=== PATIENT | female | born 1930 | race Caucasian/White ===

== ENCOUNTER 2017-02-03 20:34 | Inpatient (IN) | payer OTHER, BC ==
[2017-02-03] MEDS ORDERED: SODIUM CHLORIDE 0.9% 1000 ML INFUS.BAG IV STA (20:45)
[2017-02-03 21:02] VITALS: BMI 20.5
[2017-02-03 21:02] LABS: BASOPHIL 0.1 % (0-2.0); MCH 23.8 pg (25.7-33.7); MCHC 30.6 g/dl (32.0-36.0); MEAN CELL VOLUME 77.8 fl (80-96); MEAN PLT VOLUME 7.8 fl (7.5-11.1); NEUTROPHILS 86.3 % (42.8-82.8); PLATELET COUNT 247 K/MM3 (134-434); RDW 18.8 % (11.6-15.6); WHITE BLOOD COUNT 13.3 K/mm3 (4.0-10.0)
[2017-02-03] MEDS ORDERED: ACETAMINOPHEN 1000 MG/100 ML VIAL (NON FORMULARY) IVPB ONE (21:09)
--- NOTE | 2017-02-03 21:09 | PDOC ---
History of Present Illness - History of Present Illness Initial Comments: 02/03/17 21:14 The patient is a 86 year old female, with a significant past medical history of CVA, UTI, seizure disorder, and pneumonias, who presents to the emergency department from [facility] with family for altered mental status this evening. As per the nursing facility, the patient is confused at baseline, however, became unresponsive shortly after eating dinner. Allergies: penicillins and keflex PCP - Dr. Knowles <Alexia Ahn - Last Filed: 02/03/17 21:38> - General History Source: Family <Juan Shaikh - Last Filed: 02/04/17 19:18> - General Chief Complaint: Altered Mental Status Stated Complaint: SEPSIS Time Seen by Provider: 02/03/17 20:43 Past History <Alexia Ahn - Last Filed: 02/03/17 21:38> - Past Medical History Anemia: Yes Cancer: Yes (lung ca w/surgery and chemo) CVA: Yes (stroke;unable to walk since 2009) Dementia: Yes Disorders: Yes (UTI) HTN: Yes Hypercholesterolemia: Yes Seizures: Yes Thyroid Disease: Yes (HYPO) - Surgical History Lung Surgery: Yes (left lower lobe removal sec to cancer.) - Immunization History Immunization Up to Date: Yes - Psycho/Social/Smoking Cessation Hx Anxiety: No Suicidal Ideation: No Smoking Status: Yes Smoking History: Unknown if ever smoked Have you smoked in the past 12 months: No Number of Cigarettes Smoked Daily: 0 Hx Alcohol Use: No Drug/Substance Use Hx: No Substance Use Type: None Hx Substance Use Treatment: No <Juan Shaikh - Last Filed: 02/04/17 19:18> - Past Medical History Allergies/Adverse Reactions: Allergies Allergy/AdvReac Type Severity Reaction Status Date / Time cephalexin monohydrate Allergy Mild Rash Verified 02/03/17 20:40 [From Keflex] Penicillins Allergy Mild Rash Verified 02/03/17 20:40 Home Medications: Ambulatory Orders Citalopram Hydrobromide [Citalopram HBr] 10 mg PO HS 12/31/14 Levetiracetam 5 ml PO BID 12/31/14 Multivitamins [Multivit ([facility] Formulary)] 1 tab PO DAILY 12/31/14 Petrolatum,White [Hydrophor] 100 gm TP DAILY 12/31/14 Polyethylene Glycol [Polyox Wsr-301] 1 gm MC BID 12/31/14 Ranitidine HCl [Zantac] 150 mg PO HS 12/31/14 Fluticasone Propionate [Flovent Diskus] 50 mcg IH DAILY 02/03/17 Review of Systems - Review of Systems Able to Perform ROS?: No (AMS.) <Alexia Ahn - Last Filed: 02/03/17 21:38> *Physical Exam - Vital Signs Last Vital Signs Temp Pulse Resp BP Pulse Ox 111 H 20 138/68 94 L 02/03/17 20:40 02/03/17 20:40 02/03/17 20:40 02/03/17 20:40 - Physical Exam Comments: 02/03/17 21:14 GENERAL: (+) Patient is unresponsive but maintaining airway. No acute distress. HEENT: Normocephalic, atraumatic. PERRLA, EOMI. No conjunctival pallor. Sclera are non- icteric. Moist mucous membranes. Oropharynx is clear. NECK: Supple. Full ROM. No JVD. Carotid pulses 2+ and symmetric, without bruits. No thyromegaly. No lymphadenopathy. CARDIOVASCULAR: (+) Tachycardia with normal rhythm, 3/6 holosystolic murmur. No rubs, or gallops. Distal pulses are 2+ and symmetric. PULMONARY: No evidence of respiratory distress. Lungs clear to auscultation bilaterally. No wheezing, rales or rhonchi. ABDOMINAL: Soft. Non-tender. Non-distended. No rebound or guarding. No organomegaly. Normoactive bowel sounds. MUSCULOSKELETAL Normal range of motion at all joints. No bony deformities or tenderness. No CVA tenderness. EXTREMITIES: No cyanosis. No clubbing. No edema. No calf tenderness. SKIN: Warm and dry. Normal capillary refill. No rashes. No jaundice. NEUROLOGICAL: No focal deficits. Cranial nerves 2-12 intact. Normoreflexic in the upper and lower extremities. Normal speech. Toes are down-going bilaterally. <Alexia Ahn - Last Filed: 02/03/17 21:38> - Vital Signs Last Vital Signs Temp Pulse Resp BP Pulse Ox 111 H 20 138/68 94 L 02/03/17 20:40 02/03/17 20:40 02/03/17 20:40 02/03/17 20:40 <Juan Shaikh - Last Filed: 02/04/17 19:18> Heart Score/ECG Review - ECG Intrepretation Comment:: 02/03/17 21:17 ECG was read by Dr. Shaikh at 20:54 Impression: Sinus tachycardia. possible left atrial enlargement. Left axis deviation. Inferior infarct, age undetermined. Possible anterior infarct, age undetermined. Vent. Rate: 107 bpm ID interval: 130 ms QTc: 324 ms <Alexia Ahn - Last Filed: 02/03/17 21:38> ED Treatment Course - LABORATORY CBC & Chemistry Diagram: 02/03/17 20:35 02/03/17 20:35 - ADDITIONAL ORDERS Additional order review: Laboratory Results 02/03/17 20:46 VBG pH 7.44 H POC VBG pCO2 40.5 POC VBG pO2 53.1 H Mixed VBG HCO3 27.0 H 02/03/17 20:35 RBC 3.76 MCV 77.8 L MCHC 30.6 L RDW 18.8 H D MPV 7.8 Neutrophils % 86.3 H Lymphocytes % 4.5 L D Monocytes % 9.1 Eosinophils % 0.0 Basophils % 0.1 - Medications Given in the ED: ED Medications Discontinued Medications Generic Name Dose Route Start Last Admin Trade Name Freq PRN Reason Stop Dose Admin Sodium Chloride 1,000 ml 02/03/17 20:45 02/03/17 21:06 Normal Saline - IV 02/03/17 20:46 1,000 ml ONCE STA Administration <Alexia Ahn - Last Filed: 02/03/17 21:38> - LABORATORY CBC & Chemistry Diagram: 02/04/17 07:45 02/04/17 07:45 - RADIOLOGY Radiology Studies Ordered: Category Date Time Status CHEST X-RAY PORTABLE* [RAD] Stat Radiology 02/03/17 20:46 Ordered - Medications Given in the ED: ED Medications Discontinued Medications Generic Name Dose Route Start Last Admin Trade Name Freq PRN Reason Stop Dose Admin Sodium Chloride 1,000 ml 02/03/17 20:45 02/03/17 21:06 Normal Saline - IV 02/03/17 20:46 1,000 ml ONCE STA Administration <Juan Shaikh - Last Filed: 02/04/17 19:18> Medical Decision Making - Medical Decision Making 02/03/17 21:57 Dr. Shaikh: The scribe's documentation has been prepared under my direction and personally reviewed by me in its entirery. I confirm that the note above accurately reflects all work, treatment, procedures, and medical decision making performed by me. Pt to be admitted for probable sepsis. Pt with frequent UTI's. Pt admitted to be by her pcp Dr. Knowles <Juan Shaikh - Last Filed: 02/04/17 19:18> *DC/Admit/Observation/Transfer - Attestations Scribe Attestion: 02/03/17 21:16 Documentation prepared by Alexia Ahn, acting as medical housekeeper for Juan Shaikh DO <Alexia Ahn - Last Filed: 02/03/17 21:38> - Discharge Dispostion Admit: Yes <Juan Shaikh - Last Filed: 02/04/17 19:18> Diagnosis at time of Disposition: Sepsis Qualifiers: Sepsis type: sepsis due to unspecified organism Qualified Code(s): A41.9 - Sepsis, unspecified organism - Referrals
[2017-02-03 21:12] LABS: VENOUS PH 7.44 (7.32-7.42)
[2017-02-03] MEDS ORDERED: ACETAMINOPHEN INJECTION 100 ML IVPB ONE ×2 (21:26→21:27)
[2017-02-03 21:31] LABS: ALBUMIN 2.4 g/dl (3.4-5.0); BILIRUBIN,TOTAL 0.7 mg/dL (0.2-1.0); CALCIUM 8.2 mg/dL (8.5-10.1); COCKROFT - GAULT 7.7095; CREATININE 4.5 mg/dL (0.55-1.02); TOT PROT 7.1 g/dl (6.4-8.2)
[2017-02-03 21:34] LABS: TROPONIN I 0.03 ng/ml (0.00-0.05)
[2017-02-03 21:51] LABS: INR 1.07 (0.82-1.09); PROTHROMBIN TIME (PATIENT) 11.8 SEC (9.98-11.88)
[2017-02-03] MEDS ORDERED: LEVOFLOXACIN 500 MG IVPB 100 ML IVPB ONE ×2 (21:52→22:20)
[2017-02-03] MEDS ORDERED: AZTREONAM 1 GM in DEXTROSE 5%-WATER - 50 ML IVPB ONE (21:52)
[2017-02-03 21:54] LABS: ACTIVATED PTT 25.2 SECONDS (26.9-34.4)
[2017-02-03] MEDS ORDERED: VANCOMYCIN 1 GRAM (PRE-DOCKED) 250 ML IVPB ONE ×2 (22:04→23:47)
[2017-02-03] MEDS: DEXTROSE 5%-0.45% SALINE 1,000 ML IV SCH (22:30)
[2017-02-04 03:51] LABS: URINE APPEARANCE TURBID; URINE BILIRUBIN NEGATIVE (NEGATIVE); URINE BLOOD 1+ (NEGATIVE); URINE COLOR YELLOW; URINE GLUCOSE (UA) NEGATIVE (NEGATIVE); URINE KETONE NEGATIVE (NEGATIVE); URINE LEUK ESTERASE 2+ (NEGATIVE); URINE NITRITE NEGATIVE (NEGATIVE); URINE PROTEIN 3+ (NEGATIVE); URINE UROBILINOGEN NEGATIVE E.U./dl (0.2-1.0)
[2017-02-04] MEDS: DEXTROSE 5%-0.45% SALINE 1,000 ML IV SCH ×2 (03:58→14:42)
[2017-02-04 04:13] LABS: URINE BACTERIA MANY /hpf (NONE SEEN); URINE RBC 133 /hpf (0-3); URINE WBC 216 /hpf (3-5)
[2017-02-04 08:20] LABS: BASOPHIL 0.2 % (0-2.0); EOSINOPHIL 0.5 % (0-4.5); MCHC 30.5 g/dl (32.0-36.0); MEAN CELL VOLUME 78.7 fl (80-96); MEAN PLT VOLUME 7.7 fl (7.5-11.1); NEUTROPHILS 86.9 % (42.8-82.8); PLATELET COUNT 214 K/MM3 (134-434); RDW 18.7 % (11.6-15.6); WHITE BLOOD COUNT 12.9 K/mm3 (4.0-10.0)
--- NOTE | 2017-02-04 08:21 | HP ---
Admitting History and Physical - Admission Chief Complaint: 86 y.o F was found to be unresponsive at [facility]. She was also febrile and in respiratory distress. The family was consulted about further management and they requested to send the patient to [facility]. History of Present Illness: ASHD Multiple Abx allergies Large occipital CVA. Sz disorder. Chronic anemia. Dementia. Depression. CABG.HTN. Hypothyroidism. Thyroidectomy. Chronic and recurrent UTI. 12/18/16-E.Coli S Cipro. Constipation. DM type 2 Pneumonias. 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 Cardiovascular: Yes: CAD, HTN Gastrointestinal: Yes: Diverticulosis Renal/: Yes: UTI Musculoskeletal: Yes: Osteoarthritis Endocrine: Yes: Hypothyroidism, Osteopenia - Past Surgical History Past Surgical History: Yes: CABG - Smoking History Smoking history: Unknown if ever smoked Have you smoked in the past 12 months: No Aproximately how many cigarettes per day: 0 - Alcohol/Substance Use Hx Alcohol Use: No - Social History History of Recent Travel: No Home Medications - Allergies Allergies/Adverse Reactions: Allergies Allergy/AdvReac Type Severity Reaction Status Date / Time cephalexin monohydrate Allergy Mild Rash Verified 02/03/17 20:40 [From Keflex] Penicillins Allergy Mild Rash Verified 02/03/17 20:40 - Home Medications Home Medications: Ambulatory Orders Citalopram Hydrobromide [Citalopram HBr] 10 mg PO HS 12/31/14 Levetiracetam 5 ml PO BID 12/31/14 Multivitamins [Multivit ([facility] Formulary)] 1 tab PO DAILY 12/31/14 Petrolatum,White [Hydrophor] 100 gm TP DAILY 12/31/14 Polyethylene Glycol [Polyox Wsr-301] 1 gm MC BID 12/31/14 Ranitidine HCl [Zantac] 150 mg PO HS 12/31/14 Fluticasone Propionate [Flovent Diskus] 50 mcg IH DAILY 02/03/17 Family Disease History - Family Disease History Family History: Unable to Obtain Review of Systems Unable to obtain ROS, reason: Dementia, decreased MS. Physical Examination Vital Signs: Vital Signs Temperature 99.8 F H 02/03/17 22:45 Pulse Rate 110 H 02/04/17 00:00 Respiratory Rate 02/04/17 04:08 Blood Pressure 133/77 02/04/17 00:00 O2 Sat by Pulse Oximetry (%) 98 02/04/17 04:08 Findings/Remarks: elderly F responding to sternal rub. Constitutional: Yes: No Distress, Pallor, Thin Eyes: Yes: Conjunctiva Clear HENT: Yes: Atraumatic, Normocephalic Neck: Yes: Supple, Trachea Midline, Other (scar) Cardiovascular: Yes: Regular Rate and Rhythm, Tachycardia. No: JVD, Rub Respiratory: Yes: Diminished (RUL), On Nasal O2. No: Tachypnea Gastrointestinal: Yes: Normal Bowel Sounds, Soft. No: Abdomen, Obese, Ascites, Pulsatile Mass, Tenderness ...Rectal Exam: Yes: Deferred Renal/: Yes: Reese Present (drains cloudy urine). No: Anuria, Bladder Distention, CVA Tenderness - Left, CVA Tenderness - Right Breast(s): Yes: WNL Musculoskeletal: No: Joint Swelling Extremities: Yes: Deformity (B/l anle contraction). No: Calf Tenderness, Cold, Cyanosis, Erythema, Shortened Edema: No Neurological: Yes: Babinski positive. No: Alert, Seizure, Unresponsive Psychiatric: No: WNL, Oriented, Agitated Imaging - Results Chest X-ray: Report Reviewed (Developing RUL infiltrate) Cat Scan: Report Reviewed (CT head-no change) Ultrasound: Pending EKG: Image Reviewed Problem List - Problems (1) Pneumonia Assessment/Plan: Developing RUL infiltrate. Multiple ABX allergies including PCN, Cephalosporins levaquin Given to pt IV ID consult Code(s): J18.9 - PNEUMONIA, UNSPECIFIED ORGANISM Qualifiers: Pneumonia type: due to unspecified organism Laterality: right Lung location: upper lobe of lung Qualified Code(s): J18.1 - Lobar pneumonia, unspecified organism (2) Seizure disorder Assessment/Plan: Potencially unresponsive 2 unwitnessed sz and postictal. Febrile.-probably MS due to infection and toxic-metabolic encephalopathy. continue Keppra IV Check levels Code(s): G40.909 - EPILEPSY, UNSP, NOT INTRACTABLE, WITHOUT STATUS EPILEPTICUS (3) UTI (lower urinary tract infection) Assessment/Plan: Bld cx, ua C&S-P Continue levaquin adjusted to ARF Code(s): N39.0 - URINARY TRACT INFECTION, SITE NOT SPECIFIED (4) ARF (acute renal failure) Assessment/Plan: BUN 91/cr 4.5-probably ATN, possibly pre-renal component, r/o obstruction, cortical necrosis. US-P Renal consult. Code(s): N17.9 - ACUTE KIDNEY FAILURE, UNSPECIFIED Qualifiers: Acute renal failure type: unspecified Qualified Code(s): N17.9 - Acute kidney failure, unspecified
[2017-02-04 08:51] LABS: CALCIUM 7.6 mg/dL (8.5-10.1); MAGNESIUM 3.5 mg/dL (1.8-2.4)
[2017-02-04 08:54] LABS: BILIRUBIN,TOTAL 0.8 mg/dL (0.2-1.0); COCKROFT - GAULT 8.4575; CREATININE 4.1 mg/dL (0.55-1.02); TOT PROT 6.1 g/dl (6.4-8.2)
[2017-02-04] MEDS: levETIRAcetam 500 MG/5 ML INJECTION VIAL IVPB SCH ×2 (09:11→21:44)
[2017-02-04] MEDS: POLYETHYLENE GLYCOL 3350 119 GM BTL PO SCH ×2 (11:13→21:44)
--- NOTE | 2017-02-04 14:11 | PN ---
Progress Note (short form) - Note Progress Note: ID Consult dictated Gram Negative bacteremia/ sepsis UTI/ Sepsis secondary to UTI Possible pneumonia PCN / cephalosprin allergies Acute renal failure OBS Pending identification of blood isolate, empiric coverage in this PCN allergic pt with levaquin/ aztreonam, adjusted for renal failure
[2017-02-04] MEDS: HEPARIN NA (PORCINE) 5,000 UNITS/ML 1ML VIAL SQ SCH ×2 (14:42→21:44)
[2017-02-04] MEDS ORDERED: PT OWN MED DRAWER 7, Y5N ONE (15:40)
--- NOTE | 2017-02-04 15:45 | CONSULT ---
Consult Consult Specialty:: Nephrology Reason for Consultation:: GAYATHRI - History of Present Illness Chief Complaint: altered mental status History of Present Illness: Pt is an 86 year old female with pmhx of CVA, epilepsy, UTI, and PNA who was sent in for altered mental status. Pt is unable to give history and is lethargic. Her daughter is at bedside and helped with history. Pt has had recurrent UTI and PNA in the past. I was called to evaluate her for GAYATHRI. Daughter is unaware of history of kidney disease in pt. Pt was found to have a UTI and admitted to the hospital for treatment. 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 Cardio/Vascular: Yes: CAD, HTN Gastrointestinal: Yes: Diverticulosis Renal/: Yes: UTI Musculoskeletal: Yes: Osteoarthritis Endocrine: Yes: Hypothyroidism, Osteopenia - Past Surgical History Past Surgical History: Yes: CABG - Alcohol/Substance Use Hx Alcohol Use: No - Smoking History Smoking history: Unknown if ever smoked Have you smoked in the past 12 months: No Aproximately how many cigarettes per day: 0 - Social History History of Recent Travel: No Home Medications - Allergies Allergies/Adverse Reactions: Allergies Allergy/AdvReac Type Severity Reaction Status Date / Time cephalexin monohydrate Allergy Mild Rash Verified 02/03/17 20:40 [From Keflex] Penicillins Allergy Mild Rash Verified 02/03/17 20:40 - Home Medications Home Medications: Ambulatory Orders Citalopram Hydrobromide [Citalopram HBr] 10 mg PO HS 12/31/14 Levetiracetam 5 ml PO BID 12/31/14 Multivitamins [Multivit ([facility] Formulary)] 1 tab PO DAILY 12/31/14 Petrolatum,White [Hydrophor] 100 gm TP DAILY 12/31/14 Polyethylene Glycol [Polyox Wsr-301] 1 gm MC BID 12/31/14 Ranitidine HCl [Zantac] 150 mg PO HS 12/31/14 Fluticasone Propionate [Flovent Diskus] 50 mcg IH DAILY 02/03/17 Family Disease History - Family Disease History Family History: Denies Review of Systems Unable to obtain ROS, reason: pt is lethargic Physical Exam Vital Signs: Vital Signs Temperature 99.8 F H 02/04/17 14:05 Pulse Rate 106 H 02/04/17 14:05 Respiratory Rate 22 02/04/17 14:05 Blood Pressure 101/46 02/04/17 14:05 O2 Sat by Pulse Oximetry (%) 98 02/04/17 04:08 Constitutional: Yes: Calm Eyes: Yes: Conjunctiva Clear HENT: Yes: Atraumatic Cardiovascular: Yes: S1, S2 Respiratory: Yes: CTA Bilaterally Gastrointestinal: Yes: Soft Renal/: Yes: Reese Present Musculoskeletal: Yes: Muscle Weakness Edema: No Neurological: Yes: Lethargy Labs: CBC, BMP 02/04/17 07:45 02/04/17 07:45 Laboratory Tests 01/07/15 01/08/15 01/12/15 06:30 06:15 07:00 WBC Hgb Plt Count INR PTT (Actin FS) Sodium Potassium Chloride Carbon Dioxide Anion Gap BUN Creatinine 0.9 0.8 0.7 Magnesium Urine Color Urine Appearance Urine pH Ur Specific [place] Urine Protein Urine Glucose (UA) Urine Ketones Urine Blood Urine Nitrite Urine Bilirubin Urine Urobilinogen Ur Leukocyte Esterase Urine RBC Urine WBC Urine Bacteria 01/13/15 01/14/15 02/03/17 07:40 07:15 20:35 WBC 13.3 H D Hgb 8.9 L Plt Count 247 D INR PTT (Actin FS) Sodium Potassium Chloride Carbon Dioxide Anion Gap BUN Creatinine 0.7 0.7 Magnesium Urine Color Urine Appearance Urine pH Ur Specific [place] Urine Protein Urine Glucose (UA) Urine Ketones Urine Blood Urine Nitrite Urine Bilirubin Urine Urobilinogen Ur Leukocyte Esterase Urine RBC Urine WBC Urine Bacteria 02/03/17 02/03/17 02/04/17 20:35 20:35 03:12 WBC Hgb Plt Count INR 1.07 PTT (Actin FS) 25.2 L Sodium Potassium Chloride Carbon Dioxide Anion Gap BUN Creatinine 4.5 H D Magnesium Urine Color Yellow Urine Appearance Turbid Urine pH 8.0 Ur Specific [place] 1.015 Urine Protein 3+ H Urine Glucose (UA) Negative Urine Ketones Negative Urine Blood 1+ H Urine Nitrite Negative Urine Bilirubin Negative Urine Urobilinogen Negative Ur Leukocyte Esterase 2+ H Urine RBC 133 Urine WBC 216 Urine Bacteria Many 02/04/17 02/04/17 07:45 07:45 WBC 12.9 H Hgb 8.2 L Plt Count 214 INR PTT (Actin FS) Sodium 144 Potassium 4.0 Chloride 108 H Carbon Dioxide 26 Anion Gap 10 BUN 87 H Creatinine 4.1 H Magnesium 3.5 H D Urine Color Urine Appearance Urine pH Ur Specific [place] Urine Protein Urine Glucose (UA) Urine Ketones Urine Blood Urine Nitrite Urine Bilirubin Urine Urobilinogen Ur Leukocyte Esterase Urine RBC Urine WBC Urine Bacteria Imaging - Results Chest X-ray: Report Reviewed Ultrasound: Report Reviewed (nephrolithiasis) Problem List - Problems (1) ARF (acute renal failure) Code(s): N17.9 - ACUTE KIDNEY FAILURE, UNSPECIFIED Qualifiers: Acute renal failure type: unspecified Qualified Code(s): N17.9 - Acute kidney failure, unspecified (2) Sepsis Code(s): A41.9 - SEPSIS, UNSPECIFIED ORGANISM Qualifiers: Sepsis type: sepsis due to unspecified organism Qualified Code(s): A41.9 - Sepsis, unspecified organism (3) Anemia Code(s): D64.9 - ANEMIA, UNSPECIFIED Qualifiers: Anemia type: unspecified anemia type Qualified Code(s): D64.9 - Anemia , unspecified (4) Pneumonia Code(s): J18.9 - PNEUMONIA, UNSPECIFIED ORGANISM Qualifiers: Pneumonia type: due to unspecified organism Laterality: right Lung location: upper lobe of lung Qualified Code(s): J18.1 - Lobar pneumonia, unspecified organism (5) Seizure disorder Code(s): G40.909 - EPILEPSY, UNSP, NOT INTRACTABLE, WITHOUT STATUS EPILEPTICUS (6) UTI (lower urinary tract infection) Code(s): N39.0 - URINARY TRACT INFECTION, SITE NOT SPECIFIED Assessment/Plan Current Medications Generic Name Dose Route Start Last Admin Trade Name Freq PRN Reason Stop Dose Admin Heparin Sodium (Porcine) 5,000 unit 02/04/17 10:00 02/04/17 14:42 Heparin - SQ 5,000 unit BID ALFONSO Administration Dextrose/Sodium Chloride 1,000 mls @ 100 mls/hr 02/03/17 22:15 02/04/17 14:42 D5-1/2ns - IV 100 mls/hr ASDIR ALFONSO Administration Levofloxacin 50 mls @ 50 mls/hr 02/05/17 10:00 Levaquin 250 Mg Premixed Ivpb - IVPB Q2D@1000 ALFONSO Aztreonam 1 gm/ Dextrose 50 mls @ 100 mls/hr 02/04/17 22:00 IVPB BID [facility] Protocol Levetiracetam 500 mg 02/04/17 10:00 02/04/17 09:11 Keppra Injection - IVPB 500 mg BID ALFONSO Administration Polyethylene Glycol 17 gm 02/04/17 10:00 02/04/17 11:13 Miralax (For Daily Use) - PO Not Given BID ALFONSO Impression 1. GAYATHRI 2. sepsis 3. UTI 4. nephrolithiasis 5. epilepsy 6. dementia 7. proteinuria Plan - agree with IV hydration - will order urine supervisor fine grading and sodium to calc FENa - renal function is improving - abx per ID - follow up urine cultures - repeat bmp in am - likely GAYATHRI secondary to prerenal disease and sepsis, will comment more on etiology after gathering more data Dr Chamorro
[2017-02-04 17:52] LABS: URINE CREATININE 38.9 mg/dL (20-320)
--- NOTE | 2017-02-04 19:03 | CONS ---
DATE OF CONSULTATION: DATE OF DICTATION: 02/04/2017 INFECTIOUS DISEASE CONSULTATION HISTORY OF PRESENT ILLNESS: The patient is an 86-year-old demented female who is evaluated for positive blood culture, history was obtained from the chart, as she cannot give a history secondary to her demented state. The patient is normally nonverbal and nonambulatory in the intermediate. She was found to be poorly responsive and after dinner, and was transferred to the emergency room. In the emergency room she was noted to have fever to 101.2 and labored breathing. Cultures were obtained. She was empirically treated with Levaquin and Azactam. Blood cultures positive for gram-negative rods. The patient is a intermediate resident. She has had no recent hospital admissions. Her last hospital admission was 2 years ago. According to the daughter, she does get frequent urinary tract infections. The intermediate records indicate E. coli, UTI in December of this year treated with Levaquin. She also had a history of pseudomonas UTI in the past, however no other history of resistant urinary tract pathogens. PAST MEDICAL HISTORY: Positive for dementia, stroke, coronary artery disease, recurrent urinary tract infection, hypertension, hypothyroidism, seizure disorder, lung cancer status post surgery and chemotherapy. PAST SURGICAL HISTORY: Status post coronary artery bypass graft and left lower lobe lobectomy. ALLERGIES: PENICILLIN and KEFLEX. According to the notes, patient develops rash. No history of anaphylaxis. Family member unaware of the history of anaphylaxis. MEDICATION: Include citalopram, multivitamins, Zantac, Levaquin. SOCIAL HISTORY: senior living resident. She had a history of heavy tobacco use all of her life, stopped shortly after her stroke. SYSTEMS REVIEW: Neurologic: Positive for stroke and dementia. Cardiac: Negative chest pain or palpitations. Respiratory: As per HPI. Gastrointestinal: Negative vomiting or diarrhea. Genitourinary: Negative for urinary tract infection. LABORATORY DATA: White count on admission 13.3, 86 neutrophils, 4 lymphocytes, 8 monocytes, hematocrit 26.5, platelets 214, BUN 87, creatinine 4.1. CAT scan of the head negative. Urinalysis 216 white cells. Blood cultures growing gram-negative rods. Chest x-ray shows increased markings right upper lung field. Sonogram of the kidney shows calcified renal stones without obstruction. PHYSICAL EXAMINATION: General: She is not verbally responsive. She has her eyes closed. She resists exam with her right upper extremity. Vital signs: Temperature 98.8, blood pressure 137/67, pulse 106 regular, respirations 18 per minute, T-max 101.2. HEENT: Sclerae anicteric. Cardiovascular: Heart sounds S1, S2. Respiratory: Lungs poor inspiratory effort, decreased breath sounds bilaterally. Abdomen: Soft. No tenderness elicited. No mass, rebound, or rigidity. Extremities: Negative for edema. Skin: Appears intact. IMPRESSION: 1. Gram-negative bacteremia/sepsis. 2. Urinary tract infection, possible sepsis secondary to urinary tract infection. 3. Possible right upper lobe pneumonia. 4. PENICILLIN/CEPHALOSPORIN allergies. 5. Acute renal failure. 6. Dementia. Await identification of blood isolate. Empiric coverage in this PENICILLIN and CEPHALOSPORIN allergic patient with Azactam and Levaquin adjusted for renal insufficiency. IV fluid hydration. Will follow. Thank you for the kind referral. ADRI BURNS M.D. [id number]
[2017-02-04] MEDS: AZTREONAM 1 GM in DEXTROSE 5%-WATER - 50 ML IVPB SCH (21:43)
--- NOTE | 2017-02-04 22:56 | EKG ---
Test Reason : Blood Pressure : / mmHG Vent. Rate : 107 BPM Atrial Rate : 107 BPM P-R Int : 130 ms QRS Dur : 062 ms QT Int : 324 ms P-R-T Axes : 031 -31 -01 degrees QTc Int : 432 ms SINUS TACHYCARDIA POSSIBLE LEFT ATRIAL ENLARGEMENT LEFT AXIS DEVIATION INFERIOR INFARCT , AGE UNDETERMINED POSSIBLE ANTERIOR INFARCT , AGE UNDETERMINED ABNORMAL ECG WHEN COMPARED WITH ECG OF 31-DEC-2014 13:19, NO SIGNIFICANT CHANGE WAS FOUND Confirmed by ERIC EPPS, ALISIA ([id number]) on 02/04/2017 10:55:53 PM Referred By: Confirmed By:ALISIA REYES MD
[2017-02-05 07:27] LABS: BASOPHIL 0.1 % (0-2.0); EOSINOPHIL 0.1 % (0-4.5); MCH 24.3 pg (25.7-33.7); MCHC 31.2 g/dl (32.0-36.0); MEAN CELL VOLUME 77.9 fl (80-96); MEAN PLT VOLUME 7.9 fl (7.5-11.1); NEUTROPHILS 94.3 % (42.8-82.8); PLATELET COUNT 208 K/MM3 (134-434); RDW 18.9 % (11.6-15.6); WHITE BLOOD COUNT 19.5 K/mm3 (4.0-10.0)
[2017-02-05 07:53] LABS: ALBUMIN 1.8 g/dl (3.4-5.0); CALCIUM 7.2 mg/dL (8.5-10.1); COCKROFT - GAULT 7.5395; CREATININE 4.6 mg/dL (0.55-1.02); TOT PROT 5.6 g/dl (6.4-8.2)
[2017-02-05] MEDS ORDERED: SODIUM PHOSPHATE/NA BIPHOS 133 ML ENEMA PR ONE (07:57)
[2017-02-05 08:01] LABS: THYROID STIMULATING HORMONE 0.69 uIU/ml (0.358-3.74)
--- NOTE | 2017-02-05 08:04 | PN ---
Progress Note, Physician Chief Complaint: More awake, vocalizes screams when rubbed. Bld CX GNP-P ID WBC 19 K noted History of Present Illness: History of Present Illness: ASHD Multiple Abx allergies Large occipital CVA. Sz disorder. Chronic anemia. Dementia. Depression. CABG.HTN. Hypothyroidism. Thyroidectomy. Chronic and recurrent UTI. 12/18/16-E.Coli S Cipro. Kidney stones Constipation. DM type 2 Pneumonias. - Current Medication List Current Medications: Active Medications Bisacodyl (Dulcolax Suppository -) 10 mg NE DAILY [facility] Heparin Sodium (Porcine) (Heparin -) 5,000 unit SQ BID [facility] Last Admin: 02/04/17 21:44 Dose: 5,000 unit Dextrose/Sodium Chloride (D5-1/2ns -) 1,000 mls @ 100 mls/hr IV ASDIR [facility] Last Admin: 02/04/17 14:42 Dose: 100 mls/hr Levofloxacin (Levaquin 250 Mg Premixed Ivpb -) 50 mls @ 50 mls/hr IVPB Q2D@ 1000 [facility] Aztreonam 1 gm/ Dextrose 50 mls @ 100 mls/hr IVPB BID [facility] PRN Reason: Protocol Last Admin: 02/04/17 21:43 Dose: 100 mls/hr Levetiracetam (Keppra Injection -) 500 mg IVPB BID [facility] Last Admin: 02/04/17 21:44 Dose: 500 mg Polyethylene Glycol (Miralax (For Daily Use) -) 17 gm PO BID [facility] Last Admin: 02/04/17 21:44 Dose: 17 gm Sodium Phosphate (Fleet Adult Rectal Enema -) 133 ml NE ONCE ONE Stop: 02/05/17 07:58 - Objective Vital Signs: Vital Signs Temperature 98.7 F 02/05/17 06:00 Pulse Rate 100 H 02/05/17 06:00 Respiratory Rate 20 02/05/17 06:00 Blood Pressure 149/79 02/05/17 06:00 O2 Sat by Pulse Oximetry (%) 94 L 02/04/17 21:00 Constitutional: Yes: Mild Distress, Pallor, Thin Eyes: Yes: Conjunctiva Clear, EOM Intact HENT: Yes: Atraumatic, Normocephalic Neck: Yes: Supple, Trachea Midline Cardiovascular: Yes: Regular Rate and Rhythm, Tachycardia, S1, S2. No: Rub Respiratory: Yes: Regular, CTA Bilaterally, On Nasal O2. No: Bradypnea Gastrointestinal: Yes: Soft. No: Abdomen, Obese, Ascites, Palpable Mass, Tenderness ...Rectal Exam: Yes: Deferred Genitourinary: No: Anuria Breast(s): Yes: WNL Extremities: No: Amputation, Calf Tenderness Peripheral Pulses WNL: No Neurological: No: Alert, Oriented, Aphasia Psychiatric: No: Alert, Oriented, Agitated, Suicidal Ideation Labs: CBC, BMP 02/05/17 06:15 INR, PTT INR 1.07 (0.82-1.09) 02/03/17 20:35 - ....Imaging Ultrasound: Report Reviewed Problem List - Problems (1) Pneumonia Assessment/Plan: Developing RUL infiltrate. Multiple ABX allergies including PCN, Cephalosporins levaquin Given to pt IV ID consult Code(s): J18.9 - PNEUMONIA, UNSPECIFIED ORGANISM Qualifiers: Pneumonia type: due to unspecified organism Laterality: right Lung location: upper lobe of lung Qualified Code(s): J18.1 - Lobar pneumonia, unspecified organism (2) Seizure disorder Assessment/Plan: Potencially unresponsive 2 unwitnessed sz and postictal. Febrile.-probably MS due to infection and toxic-metabolic encephalopathy. continue Keppra IV Check levels Code(s): G40.909 - EPILEPSY, UNSP, NOT INTRACTABLE, WITHOUT STATUS EPILEPTICUS (3) UTI (lower urinary tract infection) Assessment/Plan: Bacteremia due to UTI. Bld cx-GNB, ua C&S-P Continue levaquin adjusted to ARF Code(s): N39.0 - URINARY TRACT INFECTION, SITE NOT SPECIFIED (4) ARF (acute renal failure) Assessment/Plan: BUN 91/cr 4.5-probably ATN, possibly pre-renal component, r/o obstruction, cortical necrosis. US-P Renal consult. Code(s): N17.9 - ACUTE KIDNEY FAILURE, UNSPECIFIED Qualifiers: Acute renal failure type: unspecified Qualified Code(s): N17.9 - Acute kidney failure, unspecified
[2017-02-05] MEDS: DEXTROSE 5%-0.45% SALINE 1,000 ML IV SCH ×2 (09:02→16:55)
[2017-02-05] MEDS ORDERED: PT OWN MED DRAWER 7, Y5N ONE ×2 (09:35→23:12)
[2017-02-05] MEDS: AZTREONAM 1 GM in DEXTROSE 5%-WATER - 50 ML IVPB SCH ×2 (09:48→23:48)
[2017-02-05] MEDS: levETIRAcetam 500 MG/5 ML INJECTION VIAL IVPB SCH ×2 (09:51→23:48)
[2017-02-05] MEDS: HEPARIN NA (PORCINE) 5,000 UNITS/ML 1ML VIAL SQ SCH ×2 (09:51→23:48)
[2017-02-05] MEDS: BISACODYL 10 MG SUPP.RECT RC SCH (09:52)
[2017-02-05] MEDS: LEVOFLOXACIN 250 MG IVPB 50 ML IVPB SCH (09:52)
[2017-02-05] MEDS: POLYETHYLENE GLYCOL 3350 119 GM BTL PO SCH ×2 (09:53→23:49)
--- NOTE | 2017-02-05 12:22 | PN ---
Progress Note, Physician History of Present Illness: More awake and responsive Answers simple yes/no questions No acute distress Temps down- afebrile WBC increased BC + LF, Urine c/s +NLF - Current Medication List Current Medications: Active Medications Bisacodyl (Dulcolax Suppository -) 10 mg RC DAILY [facility] Last Admin: 02/05/17 09:52 Dose: Not Given Heparin Sodium (Porcine) (Heparin -) 5,000 unit SQ BID [facility] Last Admin: 02/05/17 09:51 Dose: 5,000 unit Dextrose/Sodium Chloride (D5-1/2ns -) 1,000 mls @ 100 mls/hr IV ASDIR [facility] Last Admin: 02/05/17 09:02 Dose: Not Given Levofloxacin (Levaquin 250 Mg Premixed Ivpb -) 50 mls @ 50 mls/hr IVPB Q2D@ 1000 [facility] Last Admin: 02/05/17 09:52 Dose: 50 mls/hr Aztreonam 1 gm/ Dextrose 50 mls @ 100 mls/hr IVPB BID [facility] PRN Reason: Protocol Last Admin: 02/05/17 09:48 Dose: 100 mls/hr Levetiracetam (Keppra Injection -) 500 mg IVPB BID [facility] Last Admin: 02/05/17 09:51 Dose: 500 mg Polyethylene Glycol (Miralax (For Daily Use) -) 17 gm PO BID [facility] Last Admin: 02/05/17 09:53 Dose: Not Given - Objective Vital Signs: Vital Signs Temperature 99 F 02/05/17 10:00 Pulse Rate 96 H 02/05/17 10:00 Respiratory Rate 20 02/05/17 10:00 Blood Pressure 115/53 02/05/17 10:00 O2 Sat by Pulse Oximetry (%) 94 L 02/04/17 21:00 Constitutional: Yes: No Distress Eyes: Yes: Conjunctiva Clear Cardiovascular: Yes: Regular Rate and Rhythm, S1, S2 Respiratory: Yes: CTA Bilaterally Gastrointestinal: Yes: Normal Bowel Sounds, Soft, Abdomen, Obese. No: Tenderness Labs: CBC, BMP 02/05/17 06:15 02/05/17 06:15 INR, PTT INR 1.07 (0.82-1.09) 02/03/17 20:35 Assessment/Plan Gram Neagtive bacteremia/ sepsis UTI/ sepsis secondary to UTI Possible RUL infiltrate Leukocytosis Azotemia Antibiotic allergies Pending c/s continue empiric aztreonam/ levaquin
--- NOTE | 2017-02-05 13:22 | PN ---
Progress Note, Physician History of Present Illness: Pt seen and examined at bedside. She remains lethargic. Vo was removed today. - Current Medication List Current Medications: Active Medications Bisacodyl (Dulcolax Suppository -) 10 mg RC DAILY [facility] Last Admin: 02/05/17 09:52 Dose: Not Given Heparin Sodium (Porcine) (Heparin -) 5,000 unit SQ BID [facility] Last Admin: 02/05/17 09:51 Dose: 5,000 unit Dextrose/Sodium Chloride (D5-1/2ns -) 1,000 mls @ 100 mls/hr IV ASDIR [facility] Last Admin: 02/05/17 09:02 Dose: Not Given Levofloxacin (Levaquin 250 Mg Premixed Ivpb -) 50 mls @ 50 mls/hr IVPB Q2D@ 1000 [facility] Last Admin: 02/05/17 09:52 Dose: 50 mls/hr Aztreonam 1 gm/ Dextrose 50 mls @ 100 mls/hr IVPB BID [facility] PRN Reason: Protocol Last Admin: 02/05/17 09:48 Dose: 100 mls/hr Levetiracetam (Keppra Injection -) 500 mg IVPB BID [facility] Last Admin: 02/05/17 09:51 Dose: 500 mg Polyethylene Glycol (Miralax (For Daily Use) -) 17 gm PO BID [facility] Last Admin: 02/05/17 09:53 Dose: Not Given - Objective Vital Signs: Vital Signs Temperature 99 F 02/05/17 10:00 Pulse Rate 96 H 02/05/17 10:00 Respiratory Rate 20 02/05/17 10:00 Blood Pressure 115/53 02/05/17 10:00 O2 Sat by Pulse Oximetry (%) 94 L 02/04/17 21:00 Constitutional: Yes: Calm Eyes: Yes: Conjunctiva Clear HENT: Yes: Atraumatic Neck: Yes: Supple Cardiovascular: Yes: S1, S2 Gastrointestinal: Yes: Soft Genitourinary: Yes: Incontinence Musculoskeletal: Yes: Muscle Weakness Edema: No Neurological: Yes: Lethargy Labs: CBC, BMP 02/05/17 06:15 02/05/17 06:15 INR, PTT INR 1.07 (0.82-1.09) 02/03/17 20:35 Problem List - Problems (1) ARF (acute renal failure) Code(s): N17.9 - ACUTE KIDNEY FAILURE, UNSPECIFIED Qualifiers: Acute renal failure type: unspecified Qualified Code(s): N17.9 - Acute kidney failure, unspecified (2) Sepsis Code(s): A41.9 - SEPSIS, UNSPECIFIED ORGANISM Qualifiers: Sepsis type: sepsis due to unspecified organism Qualified Code(s): A41.9 - Sepsis, unspecified organism (3) Anemia Code(s): D64.9 - ANEMIA, UNSPECIFIED Qualifiers: Anemia type: unspecified anemia type Qualified Code(s): D64.9 - Anemia , unspecified (4) Pneumonia Code(s): J18.9 - PNEUMONIA, UNSPECIFIED ORGANISM Qualifiers: Pneumonia type: due to unspecified organism Laterality: right Lung location: upper lobe of lung Qualified Code(s): J18.1 - Lobar pneumonia, unspecified organism (5) Seizure disorder Code(s): G40.909 - EPILEPSY, UNSP, NOT INTRACTABLE, WITHOUT STATUS EPILEPTICUS (6) UTI (lower urinary tract infection) Code(s): N39.0 - URINARY TRACT INFECTION, SITE NOT SPECIFIED Assessment/Plan Current Medications Generic Name Dose Route Start Last Admin Trade Name Freq PRN Reason Stop Dose Admin Bisacodyl 10 mg 02/05/17 10:00 02/05/17 09:52 Dulcolax Suppository - RC Not Given DAILY [facility] Heparin Sodium (Porcine) 5,000 unit 02/04/17 10:00 02/05/17 09:51 Heparin - SQ 5,000 unit BID [facility] Administration Dextrose/Sodium Chloride 1,000 mls @ 100 mls/hr 02/03/17 22:15 02/05/17 09:02 D5-1/2ns - IV Not Given ASDIR [facility] Levofloxacin 50 mls @ 50 mls/hr 02/05/17 10:00 02/05/17 09:52 Levaquin 250 Mg Premixed Ivpb - IVPB 50 mls/hr Q2D@1000 [facility] Administration Aztreonam 1 gm/ Dextrose 50 mls @ 100 mls/hr 02/04/17 22:00 02/05/17 09:48 IVPB 100 mls/hr BID [facility] Administration Protocol Levetiracetam 500 mg 02/04/17 10:00 02/05/17 09:51 Keppra Injection - IVPB 500 mg BID [facility] Administration Polyethylene Glycol 17 gm 02/04/17 10:00 02/05/17 09:53 Miralax (For Daily Use) - PO Not Given BID [facility] Impression 1. GAYATHRI 2. sepsis 3. UTI 4. nephrolithiasis 5. epilepsy 6. dementia 7. proteinuria Plan - FEna is about 3.7 which is more consistent with ATN - cont with hydration as pt is not eating - vo removed, monitor diaper for voiding, discussed with nurse - repeat labs in am - cont abx - blood and urine cultures are positive Dr Chamorro
[2017-02-06] MEDS: DEXTROSE 5%-0.45% SALINE 1,000 ML IV SCH ×2 (04:53→18:08)
--- NOTE | 2017-02-06 07:34 | PN ---
Progress Note (short form) - Note Progress Note: More awake and alert today. Answers simple questions. ' Current Medications Bisacodyl (Dulcolax Suppository -) 10 mg RC DAILY [facility] Last Admin: 02/05/17 09:52 Dose: Not Given Heparin Sodium (Porcine) (Heparin -) 5,000 unit SQ BID [facility] Last Admin: 02/05/17 23:48 Dose: 5,000 unit Dextrose/Sodium Chloride (D5-1/2ns -) 1,000 mls @ 100 mls/hr IV ASDIR [facility] Last Admin: 02/06/17 04:53 Dose: 100 mls/hr Levofloxacin (Levaquin 250 Mg Premixed Ivpb -) 50 mls @ 50 mls/hr IVPB Q2D@ 1000 [facility] Last Admin: 02/05/17 09:52 Dose: 50 mls/hr Aztreonam 1 gm/ Dextrose 50 mls @ 100 mls/hr IVPB BID [facility] PRN Reason: Protocol Last Admin: 02/05/17 23:48 Dose: 100 mls/hr Levetiracetam (Keppra Injection -) 500 mg IVPB BID [facility] Last Admin: 02/05/17 23:48 Dose: 500 mg Polyethylene Glycol (Miralax (For Daily Use) -) 17 gm PO BID [facility] Last Admin: 02/05/17 23:49 Dose: 17 gm Vital Signs Temp 97.9 F 02/05/17 18:35 Pulse 97 H 02/05/17 18:35 Resp 20 02/05/17 18:35 BP 131/67 02/05/17 18:35 Pulse Ox 95 02/05/17 21:00 Intake & Output 02/05/17 02/05/17 02/06/17 11:59 23:59 11:59 Intake Total 1280 1190 1150 Output Total 300 Balance 980 1190 1150 Intake: IV 1000 1000 1100 D5-1/2Ns - 1,000 ml @ 100 1000 1000 1100 mls/hr IV ASDIR [facility] Rx#: [id number] IVPB 100 50 Oral 180 190 Output: Urine 300 Reese 300 Other: Voiding Method Diaper Incontinent # Unmeasured Voids Void 1 2 3 Bowel Movement Yes Yes # Bowel Movements 1 1 Marilee, EOMI. Neck-no JVD, no stiffness Lungs are clear Heart S1S2 regular Abdomen soft, NT Ext-no CCE Moves extremities. CXR-persistent RUL infiltrate. Current Active Problems Problem Status Diagnosed ARF (acute renal failure) ATN Acute Sepsis-GNB UTI-GNB Kidney stones RUL PNA Acute Laboratory Results - last 24 hr 02/04/17 02/05/17 02/05/17 03:12 06:15 06:15 WBC 19.5 H D RBC 3.01 L Hgb 7.3 L D Hct 23.5 L MCV 77.9 L MCHC 31.2 L RDW 18.9 H Plt Count 208 MPV 7.9 Neutrophils % 94.3 H Lymphocytes % 2.3 L D Monocytes % 3.2 L Eosinophils % 0.1 Basophils % 0.1 Sodium 145 Potassium 4.0 Chloride 110 H Carbon Dioxide 23 Anion Gap 12 BUN 80 H Creatinine 4.6 H Creat Clearance w eGFR 9.03 POC Glucometer Random Glucose 144 H Calcium 7.2 L Total Bilirubin 1.0 D AST 59 H D ALT 41 D Alkaline Phosphatase 237 H D Total Protein 5.6 L Albumin 1.8 L TSH 0.69 Ur Specific [place] 1.010 02/05/17 02/06/17 17:49 06:22 WBC RBC Hgb Hct MCV MCHC RDW Plt Count MPV Neutrophils % Lymphocytes % Monocytes % Eosinophils % Basophils % Sodium Potassium Chloride Carbon Dioxide Anion Gap BUN Creatinine Creat Clearance w eGFR POC Glucometer 92 135 Random Glucose Calcium Total Bilirubin AST ALT Alkaline Phosphatase Total Protein Albumin TSH Ur Specific [place] Plan IV fluids [place] blood ID CX and UA CX Follow renal fx IV ABX Problem List - Problems (1) Pneumonia Code(s): J18.9 - PNEUMONIA, UNSPECIFIED ORGANISM Qualifiers: Pneumonia type: due to unspecified organism Laterality: right Lung location: upper lobe of lung Qualified Code(s): J18.1 - Lobar pneumonia, unspecified organism (2) Seizure disorder Code(s): G40.909 - EPILEPSY, UNSP, NOT INTRACTABLE, WITHOUT STATUS EPILEPTICUS (3) UTI (lower urinary tract infection) Code(s): N39.0 - URINARY TRACT INFECTION, SITE NOT SPECIFIED (4) ARF (acute renal failure) Code(s): N17.9 - ACUTE KIDNEY FAILURE, UNSPECIFIED Qualifiers: Acute renal failure type: unspecified Qualified Code(s): N17.9 - Acute kidney failure, unspecified
[2017-02-06 08:13] LABS: BASOPHIL 0.1 % (0-2.0); EOSINOPHIL 0.6 % (0-4.5); MCH 24.6 pg (25.7-33.7); MCHC 31.4 g/dl (32.0-36.0); MEAN CELL VOLUME 78.2 fl (80-96); NEUTROPHILS 89.7 % (42.8-82.8); PLATELET COUNT 224 K/MM3 (134-434); RDW 18.8 % (11.6-15.6); WHITE BLOOD COUNT 14.1 K/mm3 (4.0-10.0)
[2017-02-06 08:43] LABS: ALBUMIN 1.9 g/dl (3.4-5.0); CALCIUM 7.4 mg/dL (8.5-10.1)
[2017-02-06 08:46] LABS: BILIRUBIN,TOTAL 0.7 mg/dL (0.2-1.0); CREATININE 4.3 mg/dL (0.55-1.02); TOT PROT 6.1 g/dl (6.4-8.2)
[2017-02-06] MEDS: BISACODYL 10 MG SUPP.RECT RC SCH (10:50)
[2017-02-06] MEDS: AZTREONAM 1 GM in DEXTROSE 5%-WATER - 50 ML IVPB SCH ×2 (10:50→21:05)
[2017-02-06] MEDS: POLYETHYLENE GLYCOL 3350 119 GM BTL PO SCH ×2 (10:50→21:04)
[2017-02-06] MEDS: levETIRAcetam 500 MG/5 ML INJECTION VIAL IVPB SCH ×2 (10:50→22:07)
[2017-02-06] MEDS: HEPARIN NA (PORCINE) 5,000 UNITS/ML 1ML VIAL SQ SCH ×2 (10:55→21:05)
--- NOTE | 2017-02-06 14:26 | PN ---
Progress Note, Physician History of Present Illness: Lethargic but arousable No complaints offered Temps, WBC improved Still with azotemia No adverse rxn to antibiotics - Current Medication List Current Medications: Active Medications Bisacodyl (Dulcolax Suppository -) 10 mg RC DAILY [facility] Last Admin: 02/06/17 10:50 Dose: 10 mg Heparin Sodium (Porcine) (Heparin -) 5,000 unit SQ BID [facility] Last Admin: 02/06/17 10:55 Dose: 5,000 unit Dextrose/Sodium Chloride (D5-1/2ns -) 1,000 mls @ 100 mls/hr IV ASDIR [facility] Last Admin: 02/06/17 04:53 Dose: 100 mls/hr Levofloxacin (Levaquin 250 Mg Premixed Ivpb -) 50 mls @ 50 mls/hr IVPB Q2D@ 1000 [facility] Last Admin: 02/05/17 09:52 Dose: 50 mls/hr Aztreonam 1 gm/ Dextrose 50 mls @ 100 mls/hr IVPB BID [facility] PRN Reason: Protocol Last Admin: 02/06/17 10:50 Dose: 100 mls/hr Levetiracetam (Keppra Injection -) 500 mg IVPB BID [facility] Last Admin: 02/06/17 10:50 Dose: 500 mg Polyethylene Glycol (Miralax (For Daily Use) -) 17 gm PO BID [facility] Last Admin: 02/06/17 10:50 Dose: 17 gm - Objective Vital Signs: Vital Signs Temperature 98.8 F 02/06/17 06:00 Pulse Rate 108 H 02/06/17 06:00 Respiratory Rate 20 02/06/17 06:00 Blood Pressure 137/72 02/06/17 06:00 O2 Sat by Pulse Oximetry (%) 95 02/05/17 21:00 Constitutional: Yes: No Distress, Obese Cardiovascular: Yes: Regular Rate and Rhythm, S1, S2 Respiratory: Yes: Diminished Gastrointestinal: Yes: Normal Bowel Sounds, Soft. No: Tenderness Edema: Yes Labs: CBC, BMP 02/06/17 07:00 02/06/17 07:00 INR, PTT INR 1.07 (0.82-1.09) 02/03/17 20:35 Assessment/Plan Gram Neagtive bacteremia/ sepsis- E coli UTI/ sepsis secondary to UTI - Proteus Possible RUL infiltrate Leukocytosis- improved Azotemia Antibiotic allergies continue aztreonam/ levaquin
--- NOTE | 2017-02-06 14:52 | PN ---
Progress Note, Physician History of Present Illness: Pt seen and examined at bedside. She remains lethargic. - Current Medication List Current Medications: Active Medications Bisacodyl (Dulcolax Suppository -) 10 mg RC DAILY [facility] Last Admin: 02/06/17 10:50 Dose: 10 mg Heparin Sodium (Porcine) (Heparin -) 5,000 unit SQ BID [facility] Last Admin: 02/06/17 10:55 Dose: 5,000 unit Dextrose/Sodium Chloride (D5-1/2ns -) 1,000 mls @ 100 mls/hr IV ASDIR [facility] Last Admin: 02/06/17 04:53 Dose: 100 mls/hr Levofloxacin (Levaquin 250 Mg Premixed Ivpb -) 50 mls @ 50 mls/hr IVPB Q2D@ 1000 [facility] Last Admin: 02/05/17 09:52 Dose: 50 mls/hr Aztreonam 1 gm/ Dextrose 50 mls @ 100 mls/hr IVPB BID [facility] PRN Reason: Protocol Last Admin: 02/06/17 10:50 Dose: 100 mls/hr Levetiracetam (Keppra Injection -) 500 mg IVPB BID [facility] Last Admin: 02/06/17 10:50 Dose: 500 mg Polyethylene Glycol (Miralax (For Daily Use) -) 17 gm PO BID [facility] Last Admin: 02/06/17 10:50 Dose: 17 gm - Objective Vital Signs: Vital Signs Temperature 98.8 F 02/06/17 06:00 Pulse Rate 108 H 02/06/17 06:00 Respiratory Rate 20 02/06/17 06:00 Blood Pressure 137/72 02/06/17 06:00 O2 Sat by Pulse Oximetry (%) 95 02/05/17 21:00 Constitutional: Yes: Calm Eyes: Yes: Conjunctiva Clear HENT: Yes: Atraumatic Cardiovascular: Yes: S1, S2 Respiratory: Yes: On Nasal O2 Gastrointestinal: Yes: Soft Genitourinary: Yes: Incontinence Musculoskeletal: Yes: Muscle Weakness Edema: Yes Edema: RLE: 1+ Neurological: Yes: Lethargy Labs: CBC, BMP 02/06/17 07:00 02/06/17 07:00 INR, PTT INR 1.07 (0.82-1.09) 02/03/17 20:35 Problem List - Problems (1) ARF (acute renal failure) Code(s): N17.9 - ACUTE KIDNEY FAILURE, UNSPECIFIED Qualifiers: Acute renal failure type: unspecified Qualified Code(s): N17.9 - Acute kidney failure, unspecified (2) Sepsis Code(s): A41.9 - SEPSIS, UNSPECIFIED ORGANISM Qualifiers: Sepsis type: sepsis due to unspecified organism Qualified Code(s): A41.9 - Sepsis, unspecified organism (3) Anemia Code(s): D64.9 - ANEMIA, UNSPECIFIED Qualifiers: Anemia type: unspecified anemia type Qualified Code(s): D64.9 - Anemia , unspecified (4) Pneumonia Code(s): J18.9 - PNEUMONIA, UNSPECIFIED ORGANISM Qualifiers: Pneumonia type: due to unspecified organism Laterality: right Lung location: upper lobe of lung Qualified Code(s): J18.1 - Lobar pneumonia, unspecified organism (5) Seizure disorder Code(s): G40.909 - EPILEPSY, UNSP, NOT INTRACTABLE, WITHOUT STATUS EPILEPTICUS (6) UTI (lower urinary tract infection) Code(s): N39.0 - URINARY TRACT INFECTION, SITE NOT SPECIFIED Assessment/Plan Current Medications Generic Name Dose Route Start Last Admin Trade Name Freq PRN Reason Stop Dose Admin Bisacodyl 10 mg 02/05/17 10:00 02/06/17 10:50 Dulcolax Suppository - RC 10 mg DAILY [facility] Administration Heparin Sodium (Porcine) 5,000 unit 02/04/17 10:00 02/06/17 10:55 Heparin - SQ 5,000 unit BID [facility] Administration Dextrose/Sodium Chloride 1,000 mls @ 100 mls/hr 02/03/17 22:15 02/06/17 04:53 D5-1/2ns - IV 100 mls/hr [facility] Administration Levofloxacin 50 mls @ 50 mls/hr 02/05/17 10:00 02/05/17 09:52 Levaquin 250 Mg Premixed Ivpb - IVPB 50 mls/hr Q2D@1000 [facility] Administration Aztreonam 1 gm/ Dextrose 50 mls @ 100 mls/hr 02/04/17 22:00 02/06/17 10:50 IVPB 100 mls/hr BID [facility] Administration Protocol Levetiracetam 500 mg 02/04/17 10:00 02/06/17 10:50 Keppra Injection - IVPB 500 mg BID [facility] Administration Polyethylene Glycol 17 gm 02/04/17 10:00 02/06/17 10:50 Miralax (For Daily Use) - PO 17 gm BID [facility] Administration Impression 1. GAYATHRI - likely from ATN 2. sepsis 3. UTI 4. nephrolithiasis 5. epilepsy 6. dementia 7. proteinuria Plan - cont with fluids - renal function is a little better today - repeat labs in am - cont abx per ID - blood and urine cultures are positive - discussed with pts daughter today Dr Chamorro
--- NOTE | 2017-02-06 15:47 | CONSULT ---
Admitting History and Physical - Primary Care Physician PCP: Carlos Knowles - Admission History of Present Illness: Per EMR: " 86 y/o F admitted from [facility] with sepsis. Pt is DNR. Dx: PNA, UTI, GAYATHRI-likely pre-renal. Renal sono: B/L nephrolithiasis. Diet: Puree (when awake) PO is poor- per RN pt is only opening mouth for soup and juice. Diet hx in SNF: Puree/No added salt, no concentrated sweets, Liquids protein supplement BID, Van. Ensure TID, Hical 4oz BID PMH: CVA, seizures, chronic anemia, dementia, kidney stones, CABG, HTN, UTI' s , DM, LUCAS" Confused, verbal, crying that her father is gone. Congested. Selected Entries 02/03/17 02/03/17 02/04/17 21:37 22:45 09:00 Breakfast Lunch Temperature 101.2 F H 99.8 F H 98.8 F 02/04/17 02/04/17 02/05/17 14:05 18:15 06:00 Breakfast Lunch Temperature 99.8 F H 99.9 F H 98.7 F 02/05/17 02/05/17 02/05/17 09:03 10:00 14:29 Breakfast 25% Lunch 25% Temperature 99 F 02/05/17 02/05/17 02/06/17 14:30 18:35 06:00 Breakfast Lunch Temperature 97.6 F 97.9 F 98.8 F 02/06/17 14:38 Breakfast 0 Lunch 25% Temperature 99.5 F Laboratory Tests 02/03/17 02/04/17 02/05/17 20:35 07:45 06:15 WBC 13.3 H D 12.9 H 19.5 H D 02/06/17 07:00 WBC 14.1 H History Source: Medical Record Limitations to Obtaining History: Dementia - Past Medical History [employer]: Yes: Dementia, Seizure Cardiovascular: Yes: CAD, HTN Gastrointestinal: Yes: Diverticulosis Renal/: Yes: UTI Musculoskeletal: Yes: Osteoarthritis Endocrine: Yes: Hypothyroidism, Osteopenia - Past Surgical History Past Surgical History: Yes: CABG - Smoking History Smoking history: Unknown if ever smoked Have you smoked in the past 12 months: No Aproximately how many cigarettes per day: 0 - Alcohol/Substance Use Hx Alcohol Use: No - Social History History of Recent Travel: No History - Admission Reason For Visit: SEPSIS - Diagnostics X-ray: Report Reviewed - General Mental Status: Awake and Alert, Confused Attention: Distractible Head/Neck Control: Needs Assist - Hearing Hearing: Functional Speech Evaluation - Communication Primary Language: ARABIC Communication: Yes: Simple Responses - Speech Production Intelligibility: Yes: Mildly Impaired - Speech Characteristics Voice Loudness: Mildly Soft/Quiet Voice Pitch: Yes: Normal Voice Phonatory-based Quality: Yes: Dysphonia Nasal Resonance: Normal Articulation: Yes: Precise - Swallow Evaluation/Bedside Assessment Current Nutritional Intake: Dysphagia Pureed, Thin Liquids Facial Symmetry at Rest: Symmetrical Laryngeal Movement: Able to Palpate, Reduced Excursion, Labored,delay initiation , Reduced Velocity Rate of Intake: Slow/Holding Oral Prep Time: Increased A-P Transit: Impaired Pocketing: Present Bilaterally Timing of Swallow: Delayed Coughing/Throat Clear: Yes Recommendations - Speech Evaluation, Impression/Plan Impression: Oral defensiveness with staff having difficulty feeding on a tsp. Cough response with liquids. Coughing without PO trials. Sounds congested. Strong suspicion for aspiration. - Disposition Discharge to: Long-Term Facility - Dysphagia Impressions/Plan Swallowing Skills: Impaired Dysphagia Impressions: Mild Impairment, Moderate Impairment, Ongoing Evaluation *Silent aspiration: cannot be R/O at bedside Recommendations: Modified Barium Swallow - Recommendations Diet Consistency: NPO (until mbs done, to r/o aspiration.) Medication Administration: Crushed with applesauce
[2017-02-07] MEDS: DEXTROSE 5%-0.45% SALINE 1,000 ML IV SCH ×2 (06:39→23:12)
--- NOTE | 2017-02-07 08:10 | PN ---
Progress Note, Physician Chief Complaint: awake, confused, NAD. Venous dupplex-no DVT Spoke to Nancy Pasquale and updated on mom's condition. Problems with dysohagia discussed. History of Present Illness: History of Present Illness: ASHD Multiple Abx allergies Large occipital CVA. Sz disorder. Chronic anemia. Dementia. Depression. CABG.HTN. Hypothyroidism. Thyroidectomy. Chronic and recurrent UTI. 12/18/16-E.Coli S Cipro. Kidney stones Constipation. DM type 2 Pneumonias. - Current Medication List Current Medications: Active Medications Bisacodyl (Dulcolax Suppository -) 10 mg RC DAILY [facility] Last Admin: 02/06/17 10:50 Dose: 10 mg Heparin Sodium (Porcine) (Heparin -) 5,000 unit SQ BID [facility] Last Admin: 02/06/17 21:05 Dose: 5,000 unit Dextrose/Sodium Chloride (D5-1/2ns -) 1,000 mls @ 100 mls/hr IV ASDIR [facility] Last Admin: 02/07/17 06:39 Dose: 100 mls/hr Levofloxacin (Levaquin 250 Mg Premixed Ivpb -) 50 mls @ 50 mls/hr IVPB Q2D@ 1000 [facility] Last Admin: 02/05/17 09:52 Dose: 50 mls/hr Aztreonam 1 gm/ Dextrose 50 mls @ 100 mls/hr IVPB BID [facility] PRN Reason: Protocol Last Admin: 02/06/17 21:05 Dose: 100 mls/hr Levetiracetam (Keppra Injection -) 500 mg IVPB BID [facility] Last Admin: 02/06/17 22:07 Dose: 500 mg Polyethylene Glycol (Miralax (For Daily Use) -) 17 gm PO BID [facility] Last Admin: 02/06/17 21:04 Dose: Not Given - Objective Vital Signs: Vital Signs Temperature 98.0 F 02/07/17 06:00 Pulse Rate 102 H 02/07/17 06:00 Respiratory Rate 20 02/07/17 06:00 Blood Pressure 133/63 02/07/17 06:00 O2 Sat by Pulse Oximetry (%) 95 02/06/17 21:00 Constitutional: Yes: No Distress Eyes: Yes: Conjunctiva Clear, EOM Intact HENT: Yes: Atraumatic, Normocephalic Neck: Yes: Supple, Trachea Midline Cardiovascular: Yes: Regular Rate and Rhythm. No: JVD Respiratory: Yes: On Nasal O2, Rales (RUL) Gastrointestinal: Yes: Normal Bowel Sounds, Soft ...Rectal Exam: Yes: Deferred Genitourinary: No: Anuria Breast(s): Yes: WNL Musculoskeletal: Yes: Back Pain Extremities: No: Calf Tenderness, Cold, Cyanosis Edema: No Neurological: No: Alert, Oriented Psychiatric: No: Alert, Oriented Labs: CBC, BMP 02/06/17 07:00 02/06/17 07:00 INR, PTT INR 1.07 (0.82-1.09) 02/03/17 20:35 Problem List - Problems (1) Pneumonia Assessment/Plan: Pneumonia- RUL infiltrate. Multiple ABX allergies including PCN, Cephalosporins levaquin Given to pt IV ID consult-appreciated. Code(s): J18.9 - PNEUMONIA, UNSPECIFIED ORGANISM Qualifiers: Pneumonia type: due to unspecified organism Laterality: right Lung location: upper lobe of lung Qualified Code(s): J18.1 - Lobar pneumonia, unspecified organism (2) Seizure disorder Assessment/Plan: Potencially unresponsive 2 unwitnessed sz and postictal. Febrile.-probably MS due to infection and toxic-metabolic encephalopathy. continue Keppra IV Check levels Code(s): G40.909 - EPILEPSY, UNSP, NOT INTRACTABLE, WITHOUT STATUS EPILEPTICUS (3) UTI (lower urinary tract infection) Assessment/Plan: E.Coli Bld Cx Proteus Urine CX-S Azactam. Continue levaquin adjusted to ARF/Azactam Code(s): N39.0 - URINARY TRACT INFECTION, SITE NOT SPECIFIED (4) ARF (acute renal failure) Assessment/Plan: BUN 91/cr 4.5-probably ATN, possibly pre-renal component, r/o obstruction, cortical necrosis. US-P Renal consult. Code(s): N17.9 - ACUTE KIDNEY FAILURE, UNSPECIFIED Qualifiers: Acute renal failure type: unspecified Qualified Code(s): N17.9 - Acute kidney failure, unspecified (5) Dysphagia causing pulmonary aspiration with swallowing Assessment/Plan: Swallow eval appreciated Ba swallow Family will think re GT-they were reluctant in the past Code(s): R13.19 - OTHER DYSPHAGIA
[2017-02-07 08:21] LABS: MCH 24.2 pg (25.7-33.7); MCHC 31.5 g/dl (32.0-36.0); MEAN PLT VOLUME 7.9 fl (7.5-11.1); PLATELET COUNT 208 K/MM3 (134-434); RDW 18.6 % (11.6-15.6); WHITE BLOOD COUNT 12.2 K/mm3 (4.0-10.0)
[2017-02-07] MEDS: POLYETHYLENE GLYCOL 3350 119 GM BTL PO SCH ×2 (09:37→23:12)
[2017-02-07] MEDS ORDERED: PT OWN MED DRAWER 7, Y5N ONE (09:41)
[2017-02-07] MEDS: BISACODYL 10 MG SUPP.RECT RC SCH (09:42)
[2017-02-07] MEDS: AZTREONAM 1 GM in DEXTROSE 5%-WATER - 50 ML IVPB SCH ×2 (09:42→23:11)
[2017-02-07] MEDS: levETIRAcetam 500 MG/5 ML INJECTION VIAL IVPB SCH ×2 (09:43→23:12)
[2017-02-07] MEDS: HEPARIN NA (PORCINE) 5,000 UNITS/ML 1ML VIAL SQ SCH ×2 (09:43→23:12)
[2017-02-07] MEDS: LEVOFLOXACIN 250 MG IVPB 50 ML IVPB SCH (09:43)
[2017-02-07 10:54] LABS: CALCIUM 7.5 mg/dL (8.5-10.1); COCKROFT - GAULT 8.4575; CREATININE 4.1 mg/dL (0.55-1.02)
--- NOTE | 2017-02-07 11:39 | PN ---
Progress Note, COMPO CASTER - Note Progress Note: Selected Entries 02/05/17 02/05/17 02/05/17 06:00 09:03 10:00 Breakfast 25% Lunch Supper Temperature 98.7 F 99 F 02/05/17 02/05/17 02/05/17 14:29 14:30 18:35 Breakfast Lunch 25% Supper Temperature 97.6 F 97.9 F 02/06/17 02/06/17 02/06/17 06:00 14:38 16:30 Breakfast 0 Lunch 25% Supper NPO Temperature 98.8 F 99.5 F 02/06/17 02/07/17 18:00 06:00 Breakfast Lunch Supper NPO Temperature 98.0 F Laboratory Tests 02/04/17 02/05/17 02/06/17 07:45 06:15 07:00 WBC 12.9 H 19.5 H D 14.1 H 02/07/17 06:30 WBC 12.2 H MBS this afternoon.
--- NOTE | 2017-02-07 12:44 | PN ---
Progress Note, Physician History of Present Illness: lethargic, confused Temps down afebrile WBC improved BC E coli Urine c/s Proteus - Current Medication List Current Medications: Active Medications Bisacodyl (Dulcolax Suppository -) 10 mg RC DAILY [facility] Last Admin: 02/07/17 09:42 Dose: 10 mg Heparin Sodium (Porcine) (Heparin -) 5,000 unit SQ BID [facility] Last Admin: 02/07/17 09:43 Dose: 5,000 unit Dextrose/Sodium Chloride (D5-1/2ns -) 1,000 mls @ 100 mls/hr IV ASDIR [facility] Last Admin: 02/07/17 06:39 Dose: 100 mls/hr Levofloxacin (Levaquin 250 Mg Premixed Ivpb -) 50 mls @ 50 mls/hr IVPB Q2D@ 1000 [facility] Last Admin: 02/07/17 09:43 Dose: 50 mls/hr Aztreonam 1 gm/ Dextrose 50 mls @ 100 mls/hr IVPB BID [facility] PRN Reason: Protocol Last Admin: 02/07/17 09:42 Dose: 100 mls/hr Levetiracetam (Keppra Injection -) 500 mg IVPB BID [facility] Last Admin: 02/07/17 09:43 Dose: 500 mg Polyethylene Glycol (Miralax (For Daily Use) -) 17 gm PO BID [facility] Last Admin: 02/07/17 09:37 Dose: Not Given - Objective Vital Signs: Vital Signs Temperature 98.0 F 02/07/17 06:00 Pulse Rate 102 H 02/07/17 06:00 Respiratory Rate 20 02/07/17 06:00 Blood Pressure 133/63 02/07/17 06:00 O2 Sat by Pulse Oximetry (%) 99 02/07/17 09:00 Constitutional: Yes: No Distress Eyes: Yes: Conjunctiva Clear Cardiovascular: Yes: Regular Rate and Rhythm, S1, S2 Respiratory: Yes: CTA Bilaterally Gastrointestinal: Yes: Normal Bowel Sounds, Soft. No: Tenderness Edema: No Labs: CBC, BMP 02/07/17 06:30 02/07/17 06:30 INR, PTT INR 1.07 (0.82-1.09) 02/03/17 20:35 Assessment/Plan Gram Neagtive bacteremia/ sepsis- E coli UTI/ sepsis secondary to UTI - Proteus Possible RUL infiltrate Leukocytosis- improved Azotemia Antibiotic allergies continue aztreonam/ levaquin Discussed with son at bedside
[2017-02-07] MEDS ORDERED: POTASSIUM CHLORIDE TABS 20 MEQ TABLET.ER (FP) PO ONE (16:04)
--- NOTE | 2017-02-07 16:04 | PN ---
Progress Note, Physician History of Present Illness: Pt seen and examined at bedside. She is awake but not answering questions. - Current Medication List Current Medications: Active Medications Bisacodyl (Dulcolax Suppository -) 10 mg RC DAILY [facility] Last Admin: 02/07/17 09:42 Dose: 10 mg Heparin Sodium (Porcine) (Heparin -) 5,000 unit SQ BID [facility] Last Admin: 02/07/17 09:43 Dose: 5,000 unit Dextrose/Sodium Chloride (D5-1/2ns -) 1,000 mls @ 100 mls/hr IV ASDIR [facility] Last Admin: 02/07/17 06:39 Dose: 100 mls/hr Levofloxacin (Levaquin 250 Mg Premixed Ivpb -) 50 mls @ 50 mls/hr IVPB Q2D@ 1000 [facility] Last Admin: 02/07/17 09:43 Dose: 50 mls/hr Aztreonam 1 gm/ Dextrose 50 mls @ 100 mls/hr IVPB BID [facility] PRN Reason: Protocol Last Admin: 02/07/17 09:42 Dose: 100 mls/hr Levetiracetam (Keppra Injection -) 500 mg IVPB BID [facility] Last Admin: 02/07/17 09:43 Dose: 500 mg Polyethylene Glycol (Miralax (For Daily Use) -) 17 gm PO BID [facility] Last Admin: 02/07/17 09:37 Dose: Not Given - Objective Vital Signs: Vital Signs Temperature 99.0 F 02/07/17 15:43 Pulse Rate 92 H 02/07/17 15:43 Respiratory Rate 20 02/07/17 15:43 Blood Pressure 141/71 02/07/17 15:43 O2 Sat by Pulse Oximetry (%) 99 02/07/17 09:00 Constitutional: Yes: Calm Eyes: Yes: Conjunctiva Clear Neck: Yes: Supple Cardiovascular: Yes: S1, S2 Respiratory: Yes: On Nasal O2 Gastrointestinal: Yes: Normal Bowel Sounds, Soft Genitourinary: Yes: Incontinence Musculoskeletal: Yes: Muscle Weakness Edema: Yes Edema: RLE: Trace Neurological: Yes: Lethargy Labs: CBC, BMP 02/07/17 06:30 02/07/17 06:30 INR, PTT INR 1.07 (0.82-1.09) 02/03/17 20:35 Problem List - Problems (1) ARF (acute renal failure) Code(s): N17.9 - ACUTE KIDNEY FAILURE, UNSPECIFIED Qualifiers: Acute renal failure type: unspecified Qualified Code(s): N17.9 - Acute kidney failure, unspecified (2) Sepsis Code(s): A41.9 - SEPSIS, UNSPECIFIED ORGANISM Qualifiers: Sepsis type: sepsis due to unspecified organism Qualified Code(s): A41.9 - Sepsis, unspecified organism (3) Anemia Code(s): D64.9 - ANEMIA, UNSPECIFIED Qualifiers: Anemia type: unspecified anemia type Qualified Code(s): D64.9 - Anemia , unspecified (4) Pneumonia Code(s): J18.9 - PNEUMONIA, UNSPECIFIED ORGANISM Qualifiers: Pneumonia type: due to unspecified organism Laterality: right Lung location: upper lobe of lung Qualified Code(s): J18.1 - Lobar pneumonia, unspecified organism (5) Seizure disorder Code(s): G40.909 - EPILEPSY, UNSP, NOT INTRACTABLE, WITHOUT STATUS EPILEPTICUS (6) UTI (lower urinary tract infection) Code(s): N39.0 - URINARY TRACT INFECTION, SITE NOT SPECIFIED Assessment/Plan Current Medications Generic Name Dose Route Start Last Admin Trade Name Freq PRN Reason Stop Dose Admin Bisacodyl 10 mg 02/05/17 10:00 02/07/17 09:42 Dulcolax Suppository - RC 10 mg DAILY [facility] Administration Heparin Sodium (Porcine) 5,000 unit 02/04/17 10:00 02/07/17 09:43 Heparin - SQ 5,000 unit BID [facility] Administration Dextrose/Sodium Chloride 1,000 mls @ 100 mls/hr 02/03/17 22:15 02/07/17 06:39 D5-1/2ns - IV 100 mls/hr ASDIR [facility] Administration Levofloxacin 50 mls @ 50 mls/hr 02/05/17 10:00 02/07/17 09:43 Levaquin 250 Mg Premixed Ivpb - IVPB 50 mls/hr Q2D@1000 [facility] Administration Aztreonam 1 gm/ Dextrose 50 mls @ 100 mls/hr 02/04/17 22:00 02/07/17 09:42 IVPB 100 mls/hr BID [facility] Administration Protocol Levetiracetam 500 mg 02/04/17 10:00 02/07/17 09:43 Keppra Injection - IVPB 500 mg BID [facility] Administration Polyethylene Glycol 17 gm 02/04/17 10:00 02/07/17 09:37 Miralax (For Daily Use) - PO Not Given BID [facility] Impression 1. GAYATHRI - likely from ATN 2. sepsis 3. UTI 4. nephrolithiasis 5. epilepsy 6. dementia 7. proteinuria Plan - replace potassium - check mag - cont with fluids, can decrease rate - repeat labs in am - cont abx per ID - care discussed with pts son at bedside Dr Chamorro
[2017-02-08 07:52] LABS: BASOPHIL 0.1 % (0-2.0); EOSINOPHIL 1.2 % (0-4.5); MCH 24.3 pg (25.7-33.7); MCHC 31.9 g/dl (32.0-36.0); MEAN CELL VOLUME 76.2 fl (80-96); MEAN PLT VOLUME 7.9 fl (7.5-11.1); NEUTROPHILS 87.4 % (42.8-82.8); PLATELET COUNT 204 K/MM3 (134-434); RDW 18.1 % (11.6-15.6); WHITE BLOOD COUNT 10.7 K/mm3 (4.0-10.0)
[2017-02-08 08:21] LABS: ALBUMIN 1.4 g/dl (3.4-5.0); CALCIUM 7.6 mg/dL (8.5-10.1); MAGNESIUM 2.6 mg/dL (1.8-2.4)
[2017-02-08 08:26] LABS: BILIRUBIN,TOTAL 1.3 mg/dL (0.2-1.0); COCKROFT - GAULT 9.129; CREATININE 3.8 mg/dL (0.55-1.02); TOT PROT 5.3 g/dl (6.4-8.2)
[2017-02-08] MEDS: BISACODYL 10 MG SUPP.RECT RC SCH (09:55)
[2017-02-08] MEDS: levETIRAcetam 500 MG/5 ML INJECTION VIAL IVPB SCH ×2 (09:55→21:37)
[2017-02-08] MEDS ORDERED: PT OWN MED DRAWER 7, Y5N ONE ×2 (09:58→21:17)
[2017-02-08] MEDS: AZTREONAM 1 GM in DEXTROSE 5%-WATER - 50 ML IVPB SCH ×2 (09:59→21:36)
[2017-02-08] MEDS: POLYETHYLENE GLYCOL 3350 119 GM BTL PO SCH ×2 (09:59→21:37)
--- NOTE | 2017-02-08 10:19 | PN ---
Progress Note, Physician History of Present Illness: More awake and alert + cough noted Offers no complaints Breathing non-labored Afebrile - Current Medication List Current Medications: Active Medications Bisacodyl (Dulcolax Suppository -) 10 mg RC DAILY [facility] Last Admin: 02/08/17 09:55 Dose: 10 mg Dextrose/Sodium Chloride (D5-1/2ns -) 1,000 mls @ 100 mls/hr IV ASDIR [facility] Last Admin: 02/07/17 23:12 Dose: 100 mls/hr Levofloxacin (Levaquin 250 Mg Premixed Ivpb -) 50 mls @ 50 mls/hr IVPB Q2D@ 1000 [facility] Last Admin: 02/07/17 09:43 Dose: 50 mls/hr Aztreonam 1 gm/ Dextrose 50 mls @ 100 mls/hr IVPB BID [facility] PRN Reason: Protocol Last Admin: 02/08/17 09:59 Dose: 100 mls/hr Levetiracetam (Keppra Injection -) 500 mg IVPB BID [facility] Last Admin: 02/08/17 09:55 Dose: 500 mg Polyethylene Glycol (Miralax (For Daily Use) -) 17 gm PO BID [facility] Last Admin: 02/08/17 09:59 Dose: Not Given - Objective Vital Signs: Vital Signs Temperature 98.7 F 02/08/17 09:09 Pulse Rate 102 H 02/08/17 09:09 Respiratory Rate 16 02/08/17 09:09 Blood Pressure 101/66 02/08/17 09:09 O2 Sat by Pulse Oximetry (%) 99 02/07/17 09:00 Constitutional: Yes: No Distress Eyes: Yes: Conjunctiva Clear Cardiovascular: Yes: Regular Rate and Rhythm, S1, S2 Respiratory: Yes: Rhonchi, Other (+ crepitations at bases) Gastrointestinal: Yes: Normal Bowel Sounds, Soft. No: Tenderness Edema: Yes Labs: CBC, BMP 02/08/17 07:10 02/08/17 07:10 INR, PTT INR 1.07 (0.82-1.09) 02/03/17 20:35 Assessment/Plan Gram Neagtive bacteremia/ sepsis- E coli UTI/ sepsis secondary to UTI - Proteus Possible RUL infiltrate Leukocytosis- improved Azotemia Antibiotic allergies continue aztreonam/ levaquin- coverage of urosepsis/ pneumonia
--- NOTE | 2017-02-08 10:40 | PN ---
Progress Note (short form) - Note Progress Note: Letargic but arousable in bed. Vital Signs Temp 98.7 F 02/08/17 09:09 Pulse 102 H 02/08/17 09:09 Resp 16 02/08/17 09:09 BP 101/66 02/08/17 09:09 Pulse Ox 99 02/07/17 09:00 Intake & Output 02/07/17 02/07/17 02/08/17 11:59 23:59 11:59 Intake Total 2864 699 3466 Balance 5008 902 1982 Intake: IV 1100 1000 D5-1/2Ns - 1,000 ml @ 100 1100 1000 mls/hr IV ASDIR [facility] Rx#: [id number] IVPB 150 200 150 Oral 0 360 Other: Voiding Method Incontinent Incontinent # Unmeasured Voids Void 2 1 Bowel Movement No No Pale, but NAD Right eafynu-iapkfwwn-sn Rx necessary. Neck-no JVD Lungs coarse rhonchi/rales-more on the left Heart S1s2 regular Abdomen soft , NT Ext-no CCE Laboratory Results - last 24 hr 02/05/17 02/07/17 02/07/17 10:08 06:30 17:30 WBC RBC Hgb Hct MCV MCHC RDW Plt Count MPV Neutrophils % Lymphocytes % Monocytes % Eosinophils % Basophils % Sodium 140 Potassium 3.4 L Chloride 108 H Carbon Dioxide 20 L Anion Gap 12 BUN 67 H Creatinine 4.1 H Creat Clearance w eGFR POC Glucometer 105 Random Glucose 116 H Calcium 7.5 L Magnesium Total Bilirubin AST ALT Alkaline Phosphatase Total Protein Albumin Levetiracetam 43.2 H 02/08/17 02/08/17 02/08/17 06:02 07:10 07:10 WBC 10.7 H RBC 2.81 L Hgb 6.8 L* Hct 21.4 L MCV 76.2 L MCHC 31.9 L RDW 18.1 H Plt Count 204 MPV 7.9 Neutrophils % 87.4 H Lymphocytes % 5.9 L D Monocytes % 5.4 Eosinophils % 1.2 D Basophils % 0.1 Sodium 141 Potassium 3.2 L Chloride 110 H Carbon Dioxide 18 L Anion Gap 13 BUN 59 H Creatinine 3.8 H Creat Clearance w eGFR 11.26 POC Glucometer 124 Random Glucose 117 H Calcium 7.6 L Magnesium 2.6 H D Total Bilirubin 1.3 H D AST 15 D ALT 21 D Alkaline Phosphatase 200 H Total Protein 5.3 L Albumin 1.4 L D Levetiracetam Imp Current Active Problems Problem Status Diagnosed ARF (acute renal failure) Acute Dysphagia causing pulmonary aspiration with swallowing Acute Sepsis Acute Anemia-r/o GI bleed, anemia of chronic disease.Follow labs in AM. Stop S/C Heparin. Stool guaic Tx PRBC IV Lasix Hypokalemia-will repleate K with IV/PO and change fluids. Dysphagia, hypoalbuminemia, severe malnutrition. Puree diet when awake, thin liquids, Speach pathology note and Ba swallow results read and appreciated. ARF-gradually improving.Follow BMP in AM Pneumonia RUL-CXR %-%-17-no significant change. Sepsis-E.Coli. UTI--continue Azactam/ Levaquin. Problem List - Problems (1) Pneumonia Code(s): J18.9 - PNEUMONIA, UNSPECIFIED ORGANISM Qualifiers: Pneumonia type: due to unspecified organism Laterality: right Lung location: upper lobe of lung Qualified Code(s): J18.1 - Lobar pneumonia, unspecified organism (2) Seizure disorder Code(s): G40.909 - EPILEPSY, UNSP, NOT INTRACTABLE, WITHOUT STATUS EPILEPTICUS (3) UTI (lower urinary tract infection) Code(s): N39.0 - URINARY TRACT INFECTION, SITE NOT SPECIFIED (4) ARF (acute renal failure) Code(s): N17.9 - ACUTE KIDNEY FAILURE, UNSPECIFIED Qualifiers: Acute renal failure type: unspecified Qualified Code(s): N17.9 - Acute kidney failure, unspecified (5) Dysphagia causing pulmonary aspiration with swallowing Code(s): R13.19 - OTHER DYSPHAGIA
[2017-02-08 11:04] LABS: ANISOCYTOSIS 2+; MICROCYTOSIS FEW
[2017-02-08] MEDS ORDERED: SODIUM PHOSPHATE/NA BIPHOS 133 ML ENEMA PR ONE (11:30)
[2017-02-08] MEDS ORDERED: FUROSEMIDE 40 MG/4 ML INJECTABLE VIAL IVPB ONE ×2 (11:30→17:00)
[2017-02-08] MEDS ORDERED: POTASSIUM CHLORIDE ORAL LIQUID 20 MEQ/15 ML PO ONE (11:30)
[2017-02-08] MEDS ORDERED: KCL 10 MEQ IVPB 100 ML IVPB SCH (11:30)
--- NOTE | 2017-02-08 12:06 | PN ---
Progress Note (short form) - Note Progress Note: RENAL Pt is asleep, sitting up does not awaken despite being examined Last Vital Signs Temp Pulse Resp BP Pulse Ox 98.7 F 102 H 16 101/66 99 02/08/17 09:09 02/08/17 09:09 02/08/17 09:09 02/08/17 09:09 02/07/17 09:00 lungs has rhonchi cvs s1s2 rr abd soft ext RLE edema neuro asleep CBC, BMP 02/08/17 07:10 02/08/17 07:10 Current Medications Generic Name Dose Route Start Last Admin Trade Name Elvia PRN Reason Stop Dose Admin Bisacodyl 10 mg 02/05/17 10:00 02/08/17 09:55 Dulcolax Suppository - RC 10 mg DAILY [facility] Administration Levofloxacin 50 mls @ 50 mls/hr 02/05/17 10:00 02/07/17 09:43 Levaquin 250 Mg Premixed Ivpb - IVPB 50 mls/hr Q2D@1000 [facility] Administration Aztreonam 1 gm/ Dextrose 50 mls @ 100 mls/hr 02/04/17 22:00 02/08/17 09:59 IVPB 100 mls/hr BID [facility] Administration Protocol Potassium Chloride 100 mls @ 100 mls/hr 02/08/17 11:30 Potassium Chloride 10 Meq Premix Ivpb - IVPB 02/08/17 12:29 Q60M [facility] Potassium Chloride/Dextrose/Sod Cl 1,000 mls @ 75 mls/hr 02/08/17 10:30 D5-1/2ns+20 Meq Kcl - IV ASDIR [facility] Levetiracetam 500 mg 02/04/17 10:00 02/08/17 09:55 Keppra Injection - IVPB 500 mg BID [facility] Administration Polyethylene Glycol 17 gm 02/04/17 10:00 02/08/17 09:59 Miralax (For Daily Use) - PO Not Given BID [facility] Impression 1. GAYATHRI - likely from ATN improved 2. sepsis 3. UTI 4. nephrolithiasis 5. epilepsy 6. dementia 7. proteinuria Plan - check mag - cont with fluids, cxr from yesterdsay reviewed - repeat labs in am - cont abx per ID - has asymmetric edema but recent doppler was negative for dvt MV
[2017-02-08] MEDS: D5-1/2NS+20 MEQ KCL - 1,000 ML IV SCH (12:34)
[2017-02-08] MEDS ORDERED: ACETAMINOPHEN 650 MG SUPP.RECT PR ONE (15:15)
[2017-02-08] MEDS ORDERED: FUROSEMIDE 40 MG/4 ML INJECTABLE VIAL IVPUSH ONE (17:00)
[2017-02-08] MEDS ORDERED: ACETAMINOPHEN 650 MG SUPP.RECT PR PRN (17:20)
[2017-02-09] MEDS: D5-1/2NS+20 MEQ KCL - 1,000 ML IV SCH ×2 (08:27→10:43)
[2017-02-09 08:36] LABS: ALBUMIN 1.4 g/dl (3.4-5.0); CALCIUM 7.8 mg/dL (8.5-10.1); COCKROFT - GAULT 9.129; CREATININE 3.8 mg/dL (0.55-1.02); TOT PROT 5.6 g/dl (6.4-8.2)
[2017-02-09] MEDS: AZTREONAM 1 GM in DEXTROSE 5%-WATER - 50 ML IVPB SCH ×2 (09:35→23:30)
[2017-02-09] MEDS: levETIRAcetam 500 MG/5 ML INJECTION VIAL IVPB SCH ×2 (10:35→23:52)
[2017-02-09] MEDS ORDERED: FUROSEMIDE 40 MG/4 ML INJECTABLE VIAL IVPUSH ONE (11:00)
[2017-02-09] MEDS: BISACODYL 10 MG SUPP.RECT RC SCH (11:10)
[2017-02-09] MEDS: POLYETHYLENE GLYCOL 3350 119 GM BTL PO SCH ×2 (11:10→23:29)
[2017-02-09] MEDS: LEVOFLOXACIN 250 MG IVPB 50 ML IVPB SCH (11:11)
--- NOTE | 2017-02-09 11:31 | PN ---
Progress Note, Physician Chief Complaint: ID Notified that she is febrile 101 Levofloxacin and Aztreonam - Current Medication List Current Medications: Active Medications Acetaminophen (Tylenol Suppository -) 650 mg NM Q6H PRN PRN Reason: TEMP OVER 101 Last Admin: 02/09/17 11:09 Dose: 650 mg Bisacodyl (Dulcolax Suppository -) 10 mg RC DAILY [facility] Last Admin: 02/09/17 11:10 Dose: 10 mg Furosemide (Lasix Injection -) 40 mg IVPUSH ONCE ONE Stop: 02/09/17 11:01 Levofloxacin (Levaquin 250 Mg Premixed Ivpb -) 50 mls @ 50 mls/hr IVPB Q2D@ 1000 [facility] Last Admin: 02/09/17 11:11 Dose: 50 mls/hr Aztreonam 1 gm/ Dextrose 50 mls @ 100 mls/hr IVPB BID [facility] PRN Reason: Protocol Last Admin: 02/09/17 09:35 Dose: 100 mls/hr Potassium Chloride/Dextrose/Sod Cl (D5-1/2ns+20 Meq Kcl -) 1,000 mls @ 75 mls/ hr IV ASDIR [facility] Last Admin: 02/09/17 10:43 Dose: Not Given Levetiracetam (Keppra Injection -) 500 mg IVPB BID [facility] Last Admin: 02/09/17 10:35 Dose: 500 mg Polyethylene Glycol (Miralax (For Daily Use) -) 17 gm PO BID [facility] Last Admin: 02/09/17 11:10 Dose: Not Given - Objective Vital Signs: Vital Signs Temperature 101 F H 02/09/17 10:05 Pulse Rate 108 H 02/09/17 10:05 Respiratory Rate 16 02/09/17 10:05 Blood Pressure 153/63 02/09/17 10:05 O2 Sat by Pulse Oximetry (%) 96 02/08/17 21:00 Constitutional: Yes: Other (Gurgling congested) Neck: Yes: WNL, Supple Cardiovascular: Yes: Regular Rate and Rhythm, Tachycardia, S1, S2. No: Murmur Respiratory: Yes: WNL, Regular, CTA Bilaterally. No: Rales Gastrointestinal: Yes: Soft. No: Tenderness Labs: CBC, BMP 02/09/17 06:20 INR, PTT INR 1.07 (0.82-1.09) 02/03/17 20:35 Assessment/Plan Microbiology 02/04/17 03:40 Urine - Urine - Catheterized Urine Culture - Final Proteus Mirabilis 02/03/17 23:40 Blood - Peripheral Venous Blood Culture - Final Escherichia Coli 02/03/17 21:40 Blood - Peripheral Venous Blood Culture - Final Escherichia Coli Laboratory Tests 02/08/17 02/09/17 02/09/17 07:10 06:20 06:50 WBC 10.7 H Pending Hgb Pending Hct Pending Plt Count Pending BUN 60 H Creatinine 3.8 H Creat Clearance w eGFR 11.26 Total Bilirubin 1.0 D AST 16 ALT 18 Alkaline Phosphatase 202 H Assessment E Coli bacteremia on Levoflox and Aztreonam This is more then fine for this pansensitive organism However new onset of fever and I suspect this coming from the lung even aspirating despite swallow findings Advise Panculture to look for secondary infection Stop Levoflox Continue Aztreonam Add Vancomycin and check level in am for GAYATHRI Add metronidazole 500mg tid for anaerobic coverage Sonogram liver Why is her alk phos up ?? Clarence EPPS
[2017-02-09] MEDS ORDERED: ACETAMINOPHEN 650 MG SUPP.RECT PR PRN (11:37)
[2017-02-09 11:39] LABS: MCH 23.8 pg (25.7-33.7); MCHC 30.3 g/dl (32.0-36.0); MEAN CELL VOLUME 78.6 fl (80-96); MEAN PLT VOLUME 8.1 fl (7.5-11.1); PLATELET COUNT 207 K/MM3 (134-434); RDW 18.5 % (11.6-15.6)
[2017-02-09] MEDS ORDERED: VANCOMYCIN 1 GRAM (PRE-DOCKED) 250 ML IVPB ONE (12:00)
--- NOTE | 2017-02-09 12:17 | PN ---
Progress Note (short form) - Note Progress Note: RENAL Pt is asleep, sitting up does not awaken despite being examined having fevers Last Vital Signs Temp Pulse Resp BP Pulse Ox 101 F H 108 H 16 153/63 96 02/09/17 10:05 02/09/17 10:05 02/09/17 10:05 02/09/17 10:05 02/08/17 21:00 lungs has rhonchi cvs s1s2 rr abd soft, boggy, ?tenderness in right upper quadrant. she moaned when i palpated ext RLE edema neuro asleep CBC, BMP 02/09/17 06:50 02/09/17 06:20 Current Medications Generic Name Dose Route Start Last Admin Trade Name Freq PRN Reason Stop Dose Admin Acetaminophen 650 mg 02/08/17 17:20 02/09/17 11:09 Tylenol Suppository - HI 650 mg Q6H PRN Administration TEMP OVER 101 Acetaminophen 650 mg 02/09/17 11:37 Tylenol Suppository - HI Q6H PRN TEMP = OR >101 Bisacodyl 10 mg 02/05/17 10:00 02/09/17 11:10 Dulcolax Suppository - RC 10 mg DAILY [facility] Administration Furosemide 40 mg 02/09/17 11:00 Lasix Injection - IVPUSH 02/09/17 11:01 ONCE ONE Aztreonam 1 gm/ Dextrose 50 mls @ 100 mls/hr 02/04/17 22:00 02/09/17 09:35 IVPB 100 mls/hr BID [facility] Administration Protocol Potassium Chloride/Dextrose/Sod Cl 1,000 mls @ 75 mls/hr 02/08/17 10:30 10:43 D5-1/2ns+20 Meq Kcl - IV Not Given ASDIR [facility] Vancomycin HCl 250 mls @ 166.667 mls/hr 02/09/17 12:00 Vancomycin (Pre-Docked) IVPB 02/09/17 13:29 ONCE ONE Protocol Metronidazole 100 mls @ 100 mls/hr 02/09/17 18:00 Flagyl 500mg Premixed Ivpb - IVPB Q8H-IV [facility] Levetiracetam 500 mg 02/04/17 10:00 02/09/17 10:35 Keppra Injection - IVPB 500 mg BID [facility] Administration Polyethylene Glycol 17 gm 02/04/17 10:00 02/09/17 11:10 Miralax (For Daily Use) - PO Not Given BID [facility] Impression 1. GAYATHRI - likely from ATN improved 2. sepsis- leukocytosis worsened 3. UTI 4. nephrolithiasis 5. epilepsy 6. dementia 7. proteinuria 8. ruq tenderness and high alk phos Plan - abd sonogram - repeat labs in am - cont abx per ID - has asymmetric edema but recent doppler was negative for dvt - not a candidate for hd MV
[2017-02-09] MEDS: METRONIDAZOLE 500 MG PREMIXED 100 ML IVPB SCH (17:51)
--- NOTE | 2017-02-09 17:51 | PN ---
Progress Note (short form) - Note Progress Note: became febrile yesterday. Tmax 101 today. Blood transfusion on hold. Noted elevation in WBC. Vital Signs Temp 99.8 F H 02/09/17 14:55 Pulse 105 H 02/09/17 14:55 Resp 18 02/09/17 14:55 BP 122/89 02/09/17 14:55 Pulse Ox 98 02/09/17 09:00 Intake & Output 02/08/17 02/09/17 02/09/17 23:59 11:59 23:59 Intake Total 2080 800 580 Balance 2080 800 580 Intake: IV 1000 750 D5-1/2Ns+20 Meq KCl - 1, 1000 750 000 ml @ 75 mls/hr IV ASDIR ALFONSO Rx#:[id number] IVPB 100 50 Oral 780 380 Oral Supplement 200 200 Other: Voiding Method Incontinent Incontinent Incontinent # Unmeasured Voids Void 2 1 1 Bowel Movement Yes Yes Yes Vital Signs (72 hours) 02/06/17 02/06/17 02/07/17 20:54 21:00 06:00 Temperature 98.0 F Pulse Rate 105 H 102 H Respiratory 20 20 Rate Blood Pressure 136/72 133/63 O2 Sat by Pulse 95 Oximetry (%) 02/07/17 02/07/17 02/07/17 09:00 15:43 18:00 Temperature 99.0 F 98.4 F Pulse Rate 92 H 93 H Respiratory 20 16 Rate Blood Pressure 141/71 123/57 O2 Sat by Pulse 99 Oximetry (%) 02/07/17 02/08/17 02/08/17 21:00 06:00 09:00 Temperature 99.1 F Pulse Rate 101 H Respiratory 16 16 Rate Blood Pressure 147/53 O2 Sat by Pulse 95 Oximetry (%) 02/08/17 02/08/17 02/08/17 09:09 14:33 18:00 Temperature 98.7 F 100.6 F H 100.6 F H Pulse Rate 102 H 108 H 98 H Respiratory 16 18 16 Rate Blood Pressure 101/66 149/75 125/67 O2 Sat by Pulse Oximetry (%) 02/08/17 02/09/17 02/09/17 21:00 09:00 10:05 Temperature 101 F H Pulse Rate 108 H Respiratory 16 Rate Blood Pressure 153/63 O2 Sat by Pulse 96 98 Oximetry (%) 02/09/17 14:55 Temperature 99.8 F H Pulse Rate 105 H Respiratory 18 Rate Blood Pressure 122/89 O2 Sat by Pulse Oximetry (%) On PE lethargic but arousable. + pallor Neck no JVD, supple. Lungs B/l rhonchi/rales. After aspirations secretions by me from oropharynx-less rhonchi. Heart S1s2 regular. Abdomen soft, NT +BM Ext-no CCE RUE IV-no cellulitis. Laboratory Results - last 24 hr 02/08/17 02/09/17 02/09/17 13:00 06:20 06:50 WBC 14.0 H D RBC 2.68 L Hgb 6.4 L* Hct 21.1 L MCV 78.6 L MCHC 30.3 L RDW 18.5 H Plt Count 207 MPV 8.1 Sodium 140 Potassium 4.6 D Chloride 111 H Carbon Dioxide 20 L Anion Gap 9 BUN 60 H Creatinine 3.8 H Creat Clearance w eGFR 11.26 POC Glucometer Random Glucose 96 Calcium 7.8 L Total Bilirubin 1.0 D AST 16 ALT 18 Alkaline Phosphatase 202 H Total Protein 5.6 L Albumin 1.4 L Stool Occult Blood Crossmatch See Detail 02/09/17 02/09/17 11:25 16:07 WBC RBC Hgb Hct MCV MCHC RDW Plt Count MPV Sodium Potassium Chloride Carbon Dioxide Anion Gap BUN Creatinine Creat Clearance w eGFR POC Glucometer 138 Random Glucose Calcium Total Bilirubin AST ALT Alkaline Phosphatase Total Protein Albumin Stool Occult Blood Negative Crossmatch Current Active Problems Problem Status Diagnosed ARF (acute renal failure) Acute Dysphagia causing pulmonary aspiration with swallowing Severe hypoalbuminemia. dementia S/P CVA SZ disorder. Acute Sepsis UTI Recurrent PNA-now nosocomial? Anemia Elevated Alk phos-r/o cholecystitis GB US-P Acute Dr Lima consult-f/u appreciated. Pt will be given Vanco, Metronidazole.Continue Azactam, IV Fluids Tylenol PRBC x1 unit tonight. Goals of Rx discussed with the daughter. Prognosis and nature of the illness discussed. CBC in AM, GB US, GGTP Problem List - Problems (1) Pneumonia Code(s): J18.9 - PNEUMONIA, UNSPECIFIED ORGANISM Qualifiers: Pneumonia type: due to unspecified organism Laterality: right Lung location: upper lobe of lung Qualified Code(s): J18.1 - Lobar pneumonia, unspecified organism (2) Seizure disorder Code(s): G40.909 - EPILEPSY, UNSP, NOT INTRACTABLE, WITHOUT STATUS EPILEPTICUS (3) UTI (lower urinary tract infection) Code(s): N39.0 - URINARY TRACT INFECTION, SITE NOT SPECIFIED (4) ARF (acute renal failure) Code(s): N17.9 - ACUTE KIDNEY FAILURE, UNSPECIFIED Qualifiers: Acute renal failure type: unspecified Qualified Code(s): N17.9 - Acute kidney failure, unspecified (5) Dysphagia causing pulmonary aspiration with swallowing Code(s): R13.19 - OTHER DYSPHAGIA
[2017-02-09] MEDS ORDERED: PT OWN MED DRAWER 7, Y5N ONE (20:18)
[2017-02-09] MEDS ORDERED: ACETAMINOPHEN 650 MG SUPP.RECT PR ONE (23:00)
[2017-02-10] MEDS: METRONIDAZOLE 500 MG PREMIXED 100 ML IVPB SCH ×3 (02:40→17:54)
--- NOTE | 2017-02-10 07:59 | PN ---
Progress Note (short form) - Note Progress Note: Alert, confused. NAD. Received 1 unit PRBC. Vital Signs Temp 98.7 F 02/10/17 06:00 Pulse 76 02/10/17 06:00 Resp 18 02/10/17 06:00 BP 133/66 02/10/17 06:00 Pulse Ox 97 02/09/17 21:00 Intake & Output 02/09/17 02/09/17 02/10/17 11:59 23:59 11:59 Intake Total 800 1930 350 Balance 800 1930 350 Intake: IV 750 700 D5-1/2Ns+20 Meq KCl - 1, 750 700 000 ml @ 75 mls/hr IV ASDIR ALFONSO Rx#:[id number] IVPB 50 650 Oral 380 Oral Supplement 200 Packed Cells 350 Other: Voiding Method Incontinent Diaper # Unmeasured Voids Void 1 1 Bowel Movement Yes Yes Vital Signs - 24 hr 02/09/17 02/09/17 02/09/17 09:00 10:05 14:55 Temperature 101 F H 99.8 F H Pulse Rate 108 H 105 H Respiratory 16 18 Rate Blood Pressure 153/63 122/89 O2 Sat by Pulse 98 Oximetry (%) 02/09/17 02/09/17 02/09/17 18:00 21:00 22:00 Temperature 99.5 F Pulse Rate 104 H 100 H Respiratory 18 18 18 Rate Blood Pressure 153/75 136/60 O2 Sat by Pulse 97 Oximetry (%) 02/10/17 02/10/17 02:25 06:00 Temperature 99.0 F 98.7 F Pulse Rate 97 H 76 Respiratory 20 18 Rate Blood Pressure 136/78 133/66 O2 Sat by Pulse Oximetry (%) Neck-no JVD. Lungs-coarse rhonchi B/L , improving with suctioning of oropharynx. Heart S1S2 regular. Abdomen soft, NT Ext-no CCE Laboratory Results - last 24 hr 02/08/17 02/09/17 02/09/17 13:00 06:20 06:50 WBC 14.0 H D RBC 2.68 L Hgb 6.4 L* Hct 21.1 L MCV 78.6 L MCHC 30.3 L RDW 18.5 H Plt Count 207 MPV 8.1 Sodium 140 Potassium 4.6 D Chloride 111 H Carbon Dioxide 20 L Anion Gap 9 BUN 60 H Creatinine 3.8 H Creat Clearance w eGFR 11.26 POC Glucometer Random Glucose 96 Calcium 7.8 L Total Bilirubin 1.0 D AST 16 ALT 18 Alkaline Phosphatase 202 H Total Protein 5.6 L Albumin 1.4 L Stool Occult Blood Blood Type A POSITIVE Antibody Screen Negative Crossmatch See Detail 02/09/17 02/09/17 02/10/17 11:25 16:07 06:41 WBC RBC Hgb Hct MCV MCHC RDW Plt Count MPV Sodium Potassium Chloride Carbon Dioxide Anion Gap BUN Creatinine Creat Clearance w eGFR POC Glucometer 138 82 Random Glucose Calcium Total Bilirubin AST ALT Alkaline Phosphatase Total Protein Albumin Stool Occult Blood Negative Blood Type Antibody Screen Crossmatch Contininue IV antibiotics as per ID-given Vanco, Aztreonam, Levaquin, Metronidazole Urine cx, bld cx-negative to date. IV fluids Repeat CBC, BMP in AM Problem List - Problems (1) Pneumonia Code(s): J18.9 - PNEUMONIA, UNSPECIFIED ORGANISM Qualifiers: Pneumonia type: due to unspecified organism Laterality: right Lung location: upper lobe of lung Qualified Code(s): J18.1 - Lobar pneumonia, unspecified organism (2) Seizure disorder Code(s): G40.909 - EPILEPSY, UNSP, NOT INTRACTABLE, WITHOUT STATUS EPILEPTICUS (3) UTI (lower urinary tract infection) Code(s): N39.0 - URINARY TRACT INFECTION, SITE NOT SPECIFIED (4) ARF (acute renal failure) Code(s): N17.9 - ACUTE KIDNEY FAILURE, UNSPECIFIED Qualifiers: Acute renal failure type: unspecified Qualified Code(s): N17.9 - Acute kidney failure, unspecified (5) Dysphagia causing pulmonary aspiration with swallowing Code(s): R13.19 - OTHER DYSPHAGIA
[2017-02-10] MEDS ORDERED: PT OWN MED DRAWER 7, Y5N ONE ×2 (09:54→21:29)
[2017-02-10] MEDS: AZTREONAM 1 GM in DEXTROSE 5%-WATER - 50 ML IVPB SCH (09:58)
[2017-02-10] MEDS: POLYETHYLENE GLYCOL 3350 119 GM BTL PO SCH ×2 (10:00→22:06)
[2017-02-10] MEDS: levETIRAcetam 500 MG/5 ML INJECTION VIAL IVPB SCH ×2 (10:55→22:11)
[2017-02-10] MEDS: D5-1/2NS+20 MEQ KCL - 1,000 ML IV SCH ×2 (10:55→17:54)
[2017-02-10] MEDS: BISACODYL 10 MG SUPP.RECT RC SCH (10:55)
--- NOTE | 2017-02-10 11:32 | PN ---
Progress Note, Physician History of Present Illness: Pt seen and examined at bedside. She remains lethargic. - Current Medication List Current Medications: Active Medications Acetaminophen (Tylenol Suppository -) 650 mg SC Q6H PRN PRN Reason: TEMP = OR >101 Bisacodyl (Dulcolax Suppository -) 10 mg RC DAILY [facility] Last Admin: 02/10/17 10:55 Dose: 10 mg Aztreonam 1 gm/ Dextrose 50 mls @ 100 mls/hr IVPB BID ALFONSO PRN Reason: Protocol Last Admin: 02/10/17 09:58 Dose: 100 mls/hr Potassium Chloride/Dextrose/Sod Cl (D5-1/2ns+20 Meq Kcl -) 1,000 mls @ 75 mls/ hr IV ASDIR [facility] Last Admin: 02/10/17 10:55 Dose: Not Given Metronidazole (Flagyl 500mg Premixed Ivpb -) 100 mls @ 100 mls/hr IVPB Q8H-IV LAFON[facility] Last Admin: 02/10/17 02:40 Dose: 100 mls/hr Levetiracetam (Keppra Injection -) 500 mg IVPB BID [facility] Last Admin: 02/10/17 10:55 Dose: 500 mg Polyethylene Glycol (Miralax (For Daily Use) -) 17 gm PO BID [facility] Last Admin: 02/10/17 10:00 Dose: Not Given - Objective Vital Signs: Vital Signs Temperature 98.7 F 02/10/17 06:00 Pulse Rate 76 02/10/17 06:00 Respiratory Rate 18 02/10/17 06:00 Blood Pressure 133/66 02/10/17 06:00 O2 Sat by Pulse Oximetry (%) 97 02/09/17 21:00 Constitutional: Yes: Calm Eyes: Yes: Conjunctiva Clear HENT: Yes: Atraumatic Cardiovascular: Yes: S1, S2 Respiratory: Yes: CTA Bilaterally, On Nasal O2 Gastrointestinal: Yes: Soft Genitourinary: Yes: Incontinence Musculoskeletal: Yes: Muscle Weakness Edema: RLE: Trace Neurological: Yes: Lethargy Labs: CBC, BMP 02/09/17 06:50 02/09/17 06:20 INR, PTT INR 1.07 (0.82-1.09) 02/03/17 20:35 Problem List - Problems (1) ARF (acute renal failure) Code(s): N17.9 - ACUTE KIDNEY FAILURE, UNSPECIFIED Qualifiers: Acute renal failure type: unspecified Qualified Code(s): N17.9 - Acute kidney failure, unspecified (2) Sepsis Code(s): A41.9 - SEPSIS, UNSPECIFIED ORGANISM Qualifiers: Sepsis type: sepsis due to unspecified organism Qualified Code(s): A41.9 - Sepsis, unspecified organism (3) Anemia Code(s): D64.9 - ANEMIA, UNSPECIFIED Qualifiers: Anemia type: unspecified anemia type Qualified Code(s): D64.9 - Anemia , unspecified (4) Pneumonia Code(s): J18.9 - PNEUMONIA, UNSPECIFIED ORGANISM Qualifiers: Pneumonia type: due to unspecified organism Laterality: right Lung location: upper lobe of lung Qualified Code(s): J18.1 - Lobar pneumonia, unspecified organism (5) Seizure disorder Code(s): G40.909 - EPILEPSY, UNSP, NOT INTRACTABLE, WITHOUT STATUS EPILEPTICUS (6) UTI (lower urinary tract infection) Code(s): N39.0 - URINARY TRACT INFECTION, SITE NOT SPECIFIED Assessment/Plan Current Medications Generic Name Dose Route Start Last Admin Trade Name Freq PRN Reason Stop Dose Admin Acetaminophen 650 mg 02/09/17 11:37 Tylenol Suppository - SC Q6H PRN TEMP = OR >101 Bisacodyl 10 mg 02/05/17 10:00 02/10/17 10:55 Dulcolax Suppository - RC 10 mg DAILY ALFONSO Administration Aztreonam 1 gm/ Dextrose 50 mls @ 100 mls/hr 02/04/17 22:00 02/10/17 09:58 IVPB 100 mls/hr BID ALFONSO Administration Protocol Potassium Chloride/Dextrose/Sod Cl 1,000 mls @ 75 mls/hr 02/08/17 10:30 10:55 D5-1/2ns+20 Meq Kcl - IV Not Given ASDIR ALFONSO Metronidazole 100 mls @ 100 mls/hr 02/09/17 18:00 02/10/17 02:40 Flagyl 500mg Premixed Ivpb - IVPB 100 mls/hr Q8H-IV ALFONSO Administration Levetiracetam 500 mg 02/04/17 10:00 02/10/17 10:55 Keppra Injection - IVPB 500 mg BID ALFONSO Administration Polyethylene Glycol 17 gm 02/04/17 10:00 02/10/17 10:00 Miralax (For Daily Use) - PO Not Given BID ALFONSO Impression 1. GAYATHRI - likely from ATN 2. sepsis 3. UTI 4. nephrolithiasis 5. epilepsy 6. dementia 7. proteinuria Plan - renal function slowly stabilizing - repeat labs in am - follow up ultrasound - will follow pt - case discussed with pts daughter who is at bedside - cont current meds Dr Chamorro
--- NOTE | 2017-02-10 13:41 | CONSULT ---
Consult Consult Specialty:: urology Referred by:: swapna Reason for Consultation:: kidney stones, hydronephrosis - History of Present Illness Chief Complaint: kidney stones, hydronephrosis History of Present Illness: 86 year old female admitted with positive urine and blood cultures. She was admitted a week ago. Her urine culture is now negative. Not currently febrile. US done revealed hydro with stones. 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 Cardio/Vascular: Yes: CAD, HTN Gastrointestinal: Yes: Diverticulosis Renal/: Yes: Renal Calculi, UTI Musculoskeletal: Yes: Osteoarthritis Endocrine: Yes: Hypothyroidism, Osteopenia - Past Surgical History Past Surgical History: Yes: CABG - Alcohol/Substance Use Hx Alcohol Use: No - Smoking History Smoking history: Unknown if ever smoked Have you smoked in the past 12 months: No Aproximately how many cigarettes per day: 0 - Social History History of Recent Travel: No Home Medications - Allergies Allergies/Adverse Reactions: Allergies Allergy/AdvReac Type Severity Reaction Status Date / Time cephalexin monohydrate Allergy Mild Rash Verified 02/03/17 20:40 [From Keflex] Penicillins Allergy Mild Rash Verified 02/03/17 20:40 - Home Medications Home Medications: Ambulatory Orders Citalopram Hydrobromide [Citalopram HBr] 10 mg PO HS 12/31/14 Levetiracetam 5 ml PO BID 12/31/14 Multivitamins [Multivit ([facility] Formulary)] 1 tab PO DAILY 12/31/14 Petrolatum,White [Hydrophor] 100 gm TP DAILY 12/31/14 Polyethylene Glycol [Polyox Wsr-301] 1 gm MC BID 12/31/14 Ranitidine HCl [Zantac] 150 mg PO HS 12/31/14 Fluticasone Propionate [Flovent Diskus] 50 mcg IH DAILY 02/03/17 Physical Exam Vital Signs: Vital Signs Temperature 98.7 F 02/10/17 06:00 Pulse Rate 76 02/10/17 06:00 Respiratory Rate 18 02/10/17 06:00 Blood Pressure 133/66 02/10/17 06:00 O2 Sat by Pulse Oximetry (%) 97 02/09/17 21:00 Constitutional: Yes: Calm Renal/: Yes: Reese Present. No: CVA Tenderness - Left, CVA Tenderness - Right , Hematuria Labs: CBC, BMP 02/09/17 06:50 02/09/17 06:20 Imaging - Results Ultrasound: Report Reviewed Problem List - Problems (1) Hydronephrosis Assessment/Plan: would recommend non contrast CT. would like to assess any ureteral stones. Urine culture is currently negative and does not appear to be septic. I presented this to her daughter who does not want intervention in the OR, but would be amenable to a percutaneous nephrostomy if needed. Code(s): N13.30 - UNSPECIFIED HYDRONEPHROSIS
--- NOTE | 2017-02-10 14:00 | PN ---
Progress Note, Physician History of Present Illness: Lethargic but arousable Confused Temp elevation noted Breathing non-labored - Current Medication List Current Medications: Active Medications Acetaminophen (Tylenol Suppository -) 650 mg GA Q6H PRN PRN Reason: TEMP = OR >101 Bisacodyl (Dulcolax Suppository -) 10 mg RC DAILY [facility] Last Admin: 02/10/17 10:55 Dose: 10 mg Aztreonam 1 gm/ Dextrose 50 mls @ 100 mls/hr IVPB BID ALFONSO PRN Reason: Protocol Last Admin: 02/10/17 09:58 Dose: 100 mls/hr Potassium Chloride/Dextrose/Sod Cl (D5-1/2ns+20 Meq Kcl -) 1,000 mls @ 75 mls/ hr IV ASDIR [facility] Last Admin: 02/10/17 10:55 Dose: Not Given Metronidazole (Flagyl 500mg Premixed Ivpb -) 100 mls @ 100 mls/hr IVPB Q8H-IV [facility] Last Admin: 02/10/17 12:03 Dose: 100 mls/hr Levetiracetam (Keppra Injection -) 500 mg IVPB BID [facility] Last Admin: 02/10/17 10:55 Dose: 500 mg Polyethylene Glycol (Miralax (For Daily Use) -) 17 gm PO BID [facility] Last Admin: 02/10/17 10:00 Dose: Not Given - Objective Vital Signs: Vital Signs Temperature 98.7 F 02/10/17 06:00 Pulse Rate 76 02/10/17 06:00 Respiratory Rate 18 02/10/17 06:00 Blood Pressure 133/66 02/10/17 06:00 O2 Sat by Pulse Oximetry (%) 97 02/09/17 21:00 Constitutional: Yes: No Distress Eyes: Yes: Conjunctiva Clear Cardiovascular: Yes: Regular Rate and Rhythm, S1, S2 Respiratory: Yes: Diminished Gastrointestinal: Yes: Normal Bowel Sounds, Soft. No: Tenderness Labs: CBC, BMP 02/09/17 06:50 02/09/17 06:20 INR, PTT INR 1.07 (0.82-1.09) 02/03/17 20:35 Assessment/Plan Gram Neagtive bacteremia/ sepsis- E coli UTI/ sepsis secondary to UTI - Proteus Possible RUL infiltrate Leukocytosis Azotemia Antibiotic allergies continue aztreonam/ flagyl - coverage of urosepsis/ pneumonia Stat dose vancomycin given Await cultures
[2017-02-11] MEDS: AZTREONAM 1 GM in DEXTROSE 5%-WATER - 50 ML IVPB SCH ×3 (00:29→22:17)
[2017-02-11] MEDS: METRONIDAZOLE 500 MG PREMIXED 100 ML IVPB SCH ×3 (01:58→17:19)
[2017-02-11 07:27] LABS: BASOPHIL 0.3 % (0-2.0); EOSINOPHIL 0.4 % (0-4.5); MCH 25.9 pg (25.7-33.7); MCHC 32.5 g/dl (32.0-36.0); MEAN CELL VOLUME 79.6 fl (80-96); MEAN PLT VOLUME 7.8 fl (7.5-11.1); NEUTROPHILS 87.1 % (42.8-82.8); PLATELET COUNT 210 K/MM3 (134-434); RDW 18.3 % (11.6-15.6); WHITE BLOOD COUNT 16.6 K/mm3 (4.0-10.0)
[2017-02-11 07:47] LABS: ALBUMIN 1.4 g/dl (3.4-5.0)
[2017-02-11 07:53] LABS: BILIRUBIN,TOTAL 1.2 mg/dL (0.2-1.0); CALCIUM 7.7 mg/dL (8.5-10.1); COCKROFT - GAULT 9.911; CREATININE 3.5 mg/dL (0.55-1.02); TOT PROT 5.9 g/dl (6.4-8.2)
--- NOTE | 2017-02-11 10:34 | PN ---
Progress Note (short form) - Note Progress Note: CT revealed bilateral ureteral calculi. Right side with obstruction. if family is amenable patient ahould have a right nephrostomy tube Problem List - Problems (1) Hydronephrosis Code(s): N13.30 - UNSPECIFIED HYDRONEPHROSIS
[2017-02-11] MEDS: BISACODYL 10 MG SUPP.RECT RC SCH (10:48)
[2017-02-11] MEDS: levETIRAcetam 500 MG/5 ML INJECTION VIAL IVPB SCH ×2 (11:34→22:17)
[2017-02-11] MEDS: POLYETHYLENE GLYCOL 3350 119 GM BTL PO SCH ×3 (11:35→22:17)
[2017-02-11] MEDS: D5-1/2NS+20 MEQ KCL - 1,000 ML IV SCH (11:35)
--- NOTE | 2017-02-11 13:06 | PN ---
Progress Note (short form) - Note Progress Note: ct SCAN DEMONSTRATED rIGHT HYDRONEPPHROSIS WITH b/l KIDNEY STONES. sPOKE TO dR. Castellano-HE SUGGESTED PERCUTANEOUS NEPHROSTOMY. tHREE OPTIONS OF TREATMENT WERE DISCUSSED WITH THE DAUGHTER TODAY INCLUDING - LASER LITHOTRIPSY AND STENT IN THE or, pERCUTANEOUS NEPHROSTOMY BY ir OR NO AGGRESSIVE MANAGEMENT FOR THIS ELDERLY PATIENT WITH DEMENTIA, sEPSIS, dYSPHAGIA , cva, sZ AND PAALIATIVE CARE/ hOSPICE. tHE FAMILY CANNOT MAKE A DECISION YET BUT THE DAUGHTER PROMICE D TO CALL BACK. pATIENT IS AFEBRILE bLOOD CX AND ua CX ARE NEGATIVE BUT dbc INCREASED TO 16 k. nad, cONFUSED, LETHARGIC AND AWAKE b/l RHONCHI. hEART s1s2 REGULAR. aBDOMEN SOFT, nt eXT-NO cce Vital Signs Temp 98.7 F 02/11/17 10:00 Pulse 98 H 02/11/17 10:00 Resp 18 02/11/17 10:00 BP 117/64 02/11/17 10:00 Pulse Ox 97 02/10/17 09:00 Intake & Output 02/10/17 02/11/17 02/11/17 23:59 11:59 23:59 Intake Total 875 750 Balance 875 750 Intake: IV 825 750 D5-1/2Ns+20 Meq KCl - 1, 825 750 000 ml @ 75 mls/hr IV ASDIR ALFONSO Rx#:[id number] Oral 50 Other: Voiding Method Diaper # Unmeasured Voids Void 1 Bowel Movement Yes # Bowel Movements 2 Current Medications Generic Name Dose Route Start Last Admin Trade Name Freq PRN Reason Stop Dose Admin Acetaminophen 650 mg 02/09/17 11:37 Tylenol Suppository - [place] Q6H PRN TEMP = OR >101 Bisacodyl 10 mg 02/05/17 10:00 02/11/17 10:48 Dulcolax Suppository - RC 10 mg DAILY ALFONSO Administration Aztreonam 1 gm/ Dextrose 50 mls @ 100 mls/hr 02/04/17 22:00 02/11/17 11:34 IVPB 100 mls/hr BID ALFONSO Administration Protocol Potassium Chloride/Dextrose/Sod Cl 1,000 mls @ 75 mls/hr 02/08/17 10:30 11:35 D5-1/2ns+20 Meq Kcl - IV Not Given ASDIR ALFONSO Metronidazole 100 mls @ 100 mls/hr 02/09/17 18:00 02/11/17 10:48 Flagyl 500mg Premixed Ivpb - IVPB 100 mls/hr Q8H-IV ALFONSO Administration Levetiracetam 500 mg 02/04/17 10:00 02/11/17 11:34 Keppra Injection - IVPB 500 mg BID ALFONSO Administration Polyethylene Glycol 17 gm 02/04/17 10:00 02/11/17 12:13 Miralax (For Daily Use) - PO Not Given BID ALFONSO Laboratory Results - last 24 hr 02/10/17 02/11/17 02/11/17 16:43 06:30 06:30 WBC 16.6 H RBC 2.99 L Hgb 7.7 L D Hct 23.8 L MCV 79.6 L MCHC 32.5 RDW 18.3 H Plt Count 210 MPV 7.8 Neutrophils % 87.1 H Lymphocytes % 6.0 L Monocytes % 6.2 Eosinophils % 0.4 Basophils % 0.3 Sodium 144 Potassium 4.5 Chloride 116 H Carbon Dioxide 14 L D Anion Gap 14 BUN 62 H Creatinine 3.5 H Creat Clearance w eGFR 12.38 POC Glucometer 110 Random Glucose 111 H Calcium 7.7 L Total Bilirubin 1.2 H AST 21 D ALT 14 D Alkaline Phosphatase 159 H D Total Protein 5.9 L Albumin 1.4 L 02/11/17 06:59 WBC RBC Hgb Hct MCV MCHC RDW Plt Count MPV Neutrophils % Lymphocytes % Monocytes % Eosinophils % Basophils % Sodium Potassium Chloride Carbon Dioxide Anion Gap BUN Creatinine Creat Clearance w eGFR POC Glucometer 112 Random Glucose Calcium Total Bilirubin AST ALT Alkaline Phosphatase Total Protein Albumin Current Active Problems Problem Status Diagnosed ARF (acute renal failure), aNEMIA Acute Dysphagia causing pulmonary aspiration with swallowing Acute Hydronephrosis Acute Sepsis, uti, pna Acute pLAN iv FLUIDS, abx aWAITING FAMILY DECISION RE: PROCEDURE. Problem List - Problems (1) Pneumonia Code(s): J18.9 - PNEUMONIA, UNSPECIFIED ORGANISM Qualifiers: Pneumonia type: due to unspecified organism Laterality: right Lung location: upper lobe of lung Qualified Code(s): J18.1 - Lobar pneumonia, unspecified organism (2) Seizure disorder Code(s): G40.909 - EPILEPSY, UNSP, NOT INTRACTABLE, WITHOUT STATUS EPILEPTICUS (3) UTI (lower urinary tract infection) Code(s): N39.0 - URINARY TRACT INFECTION, SITE NOT SPECIFIED (4) ARF (acute renal failure) Code(s): N17.9 - ACUTE KIDNEY FAILURE, UNSPECIFIED Qualifiers: Acute renal failure type: unspecified Qualified Code(s): N17.9 - Acute kidney failure, unspecified (5) Dysphagia causing pulmonary aspiration with swallowing Code(s): R13.19 - OTHER DYSPHAGIA
--- NOTE | 2017-02-11 14:57 | PN ---
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 Wet,gurgly voice, with suctioning needed intermittently. Prognosis for safe and sufficient PO intake is poor.
--- NOTE | 2017-02-11 16:05 | PN ---
Progress Note, Physician History of Present Illness: Pt seen and examined at bedside. She remains lethargic. Pt has poor PO intake. - Current Medication List Current Medications: Active Medications Acetaminophen (Tylenol Suppository -) 650 mg NV Q6H PRN PRN Reason: TEMP = OR >101 Bisacodyl (Dulcolax Suppository -) 10 mg RC DAILY [facility] Last Admin: 02/11/17 10:48 Dose: 10 mg Aztreonam 1 gm/ Dextrose 50 mls @ 100 mls/hr IVPB BID [facility] PRN Reason: Protocol Last Admin: 02/11/17 11:34 Dose: 100 mls/hr Potassium Chloride/Dextrose/Sod Cl (D5-1/2ns+20 Meq Kcl -) 1,000 mls @ 75 mls/ hr IV ASDIR [facility] Last Admin: 02/11/17 11:35 Dose: Not Given Metronidazole (Flagyl 500mg Premixed Ivpb -) 100 mls @ 100 mls/hr IVPB Q8H-IV [facility] Last Admin: 02/11/17 10:48 Dose: 100 mls/hr Levetiracetam (Keppra Injection -) 500 mg IVPB BID [facility] Last Admin: 02/11/17 11:34 Dose: 500 mg Polyethylene Glycol (Miralax (For Daily Use) -) 17 gm PO BID [facility] Last Admin: 02/11/17 12:13 Dose: Not Given - Objective Vital Signs: Vital Signs Temperature 98.7 F 02/11/17 10:00 Pulse Rate 98 H 02/11/17 10:00 Respiratory Rate 18 02/11/17 10:00 Blood Pressure 117/64 02/11/17 10:00 O2 Sat by Pulse Oximetry (%) 98 02/11/17 09:00 Constitutional: Yes: Calm Eyes: Yes: Conjunctiva Clear HENT: Yes: Atraumatic Neck: Yes: Supple Cardiovascular: Yes: S1, S2 Respiratory: Yes: CTA Bilaterally, On Nasal O2 Genitourinary: Yes: Incontinence Edema: No Neurological: Yes: Lethargy Labs: CBC, BMP 02/11/17 06:30 02/11/17 06:30 INR, PTT INR 1.07 (0.82-1.09) 02/03/17 20:35 Problem List - Problems (1) ARF (acute renal failure) Code(s): N17.9 - ACUTE KIDNEY FAILURE, UNSPECIFIED Qualifiers: Acute renal failure type: unspecified Qualified Code(s): N17.9 - Acute kidney failure, unspecified (2) Sepsis Code(s): A41.9 - SEPSIS, UNSPECIFIED ORGANISM Qualifiers: Sepsis type: sepsis due to unspecified organism Qualified Code(s): A41.9 - Sepsis, unspecified organism (3) Anemia Code(s): D64.9 - ANEMIA, UNSPECIFIED Qualifiers: Anemia type: unspecified anemia type Qualified Code(s): D64.9 - Anemia , unspecified (4) Pneumonia Code(s): J18.9 - PNEUMONIA, UNSPECIFIED ORGANISM Qualifiers: Pneumonia type: due to unspecified organism Laterality: right Lung location: upper lobe of lung Qualified Code(s): J18.1 - Lobar pneumonia, unspecified organism (5) Seizure disorder Code(s): G40.909 - EPILEPSY, UNSP, NOT INTRACTABLE, WITHOUT STATUS EPILEPTICUS (6) UTI (lower urinary tract infection) Code(s): N39.0 - URINARY TRACT INFECTION, SITE NOT SPECIFIED Assessment/Plan Current Medications Generic Name Dose Route Start Last Admin Trade Name Freq PRN Reason Stop Dose Admin Acetaminophen 650 mg 02/09/17 11:37 Tylenol Suppository - NV Q6H PRN TEMP = OR >101 Bisacodyl 10 mg 02/05/17 10:00 02/11/17 10:48 Dulcolax Suppository - RC 10 mg DAILY [facility] Administration Aztreonam 1 gm/ Dextrose 50 mls @ 100 mls/hr 02/04/17 22:00 02/11/17 11:34 IVPB 100 mls/hr BID ALFONSO Administration Protocol Potassium Chloride/Dextrose/Sod Cl 1,000 mls @ 75 mls/hr 02/08/17 10:30 11:35 D5-1/2ns+20 Meq Kcl - IV Not Given ASDIR AL[facility]ONSO Metronidazole 100 mls @ 100 mls/hr 02/09/17 18:00 02/11/17 10:48 Flagyl 500mg Premixed Ivpb - IVPB 100 mls/hr Q8H-IV AL[facility]ONSO Administration Levetiracetam 500 mg 02/04/17 10:00 02/11/17 11:34 Keppra Injection - IVPB 500 mg BID AL[facility]ONSO Administration Polyethylene Glycol 17 gm 02/04/17 10:00 02/11/17 12:13 Miralax (For Daily Use) - PO Not Given BID ALFONSO Impression 1. GAYATHRI - likely from ATN 2. sepsis 3. UTI 4. nephrolithiasis 5. epilepsy 6. dementia 7. proteinuria 8. right side urinary obstruction Plan - cont with fluids as she is not eating - will add bicarb to fluids and decrease the amount of potassium - repeat labs in am - urology input appreciated - ct reviewed Dr Chamorro
[2017-02-11] MEDS ORDERED: POTASSIUM CHLORIDE IVPB SCH (16:15)
[2017-02-11] MEDS ORDERED: DEXTROSE IVPB SCH (16:15)
[2017-02-11] MEDS ORDERED: [UNRECOGNIZED DRUG - OTHER] IVPB SCH (16:15)
[2017-02-11] MEDS: DEXTROSE IV SCH (17:39)
[2017-02-11] MEDS: [UNRECOGNIZED DRUG - OTHER] IV SCH (17:39)
[2017-02-11] MEDS: POTASSIUM CHLORIDE IV SCH (17:39)
[2017-02-12] MEDS: METRONIDAZOLE 500 MG PREMIXED 100 ML IVPB SCH ×3 (01:40→17:39)
[2017-02-12 08:04] LABS: CALCIUM 7.5 mg/dL (8.5-10.1)
[2017-02-12 08:07] LABS: COCKROFT - GAULT 10.5145; CREATININE 3.3 mg/dL (0.55-1.02)
[2017-02-12] MEDS ORDERED: PT OWN MED DRAWER 7, Y5N ONE (08:32)
--- NOTE | 2017-02-12 08:37 | PN ---
Progress Note (short form) - Note Progress Note: The meeting with both daughters and the son of Mrs. Almonte was held today. The treatment options and possible adverse effects, complications, risks vs possible but unlikely benefuts explained to the family including but not restricted to sepsis, and . Questions unswered. Prognosis was explained. Vital Signs (72 hours) 02/09/17 02/09/17 02/09/17 09:00 10:05 14:55 Temperature 101 F H 99.8 F H Pulse Rate 108 H 105 H Respiratory 16 18 Rate Blood Pressure 153/63 122/89 O2 Sat by Pulse 98 Oximetry (%) 02/09/17 02/09/17 02/09/17 18:00 21:00 22:00 Temperature 99.5 F Pulse Rate 104 H 100 H Respiratory 18 18 18 Rate Blood Pressure 153/75 136/60 O2 Sat by Pulse 97 Oximetry (%) 02/10/17 02/10/17 02/10/17 02:25 06:00 09:00 Temperature 99.0 F 98.7 F Pulse Rate 97 H 76 Respiratory 20 18 Rate Blood Pressure 136/78 133/66 O2 Sat by Pulse 97 Oximetry (%) 02/10/17 02/10/17 02/10/17 14:19 21:00 21:30 Temperature 97.8 F 98.4 F Pulse Rate 102 H 103 H Respiratory 22 18 18 Rate Blood Pressure 100/75 109/67 O2 Sat by Pulse Oximetry (%) 02/11/17 02/11/17 02/11/17 06:00 09:00 10:00 Temperature 98.4 F 98.7 F Pulse Rate 112 H 98 H Respiratory 18 18 Rate Blood Pressure 109/62 117/64 O2 Sat by Pulse 98 Oximetry (%) 02/11/17 02/11/17 02/12/17 18:00 21:00 06:00 Temperature 98.0 F 98.6 F Pulse Rate 92 H 94 H Respiratory 18 18 18 Rate Blood Pressure 134/65 141/72 O2 Sat by Pulse 100 Oximetry (%) Laboratory Results - last 24 hr 02/08/17 02/11/17 02/12/17 13:00 17:19 05:56 Sodium Potassium Chloride Carbon Dioxide Anion Gap BUN Creatinine POC Glucometer 115 106 Random Glucose Calcium Crossmatch See Detail 02/12/17 06:15 Sodium 144 Potassium 4.0 Chloride 114 H Carbon Dioxide 19 L D Anion Gap 11 BUN 60 H Creatinine 3.3 H POC Glucometer Random Glucose 105 Calcium 7.5 L Crossmatch Current Medications Generic Name Dose Route Start Last Admin Trade Name Freq PRN Reason Stop Dose Admin Acetaminophen 650 mg 02/09/17 11:37 Tylenol Suppository - IN Q6H PRN TEMP = OR >101 Bisacodyl 10 mg 02/05/17 10:00 02/11/17 10:48 Dulcolax Suppository - RC 10 mg DAILY [facility] Administration Aztreonam 1 gm/ Dextrose 50 mls @ 100 mls/hr 02/04/17 22:00 02/11/17 22:17 IVPB 100 mls/hr BID ALFONSO Administration Protocol Metronidazole 100 mls @ 100 mls/hr 02/09/17 18:00 02/12/17 01:40 Flagyl 500mg Premixed Ivpb - IVPB 100 mls/hr Q8H-IV ALFONSO Administration Potassium Chloride 10 meq/ 1,055 mls @ 75 mls/hr 02/11/17 16:45 02/11/17 17:39 Sodium Bicarbonate 50 meq/ IV 75 mls/hr Dextrose/Sodium Chloride Q14H AL[facility] Administration Levetiracetam 500 mg 02/04/17 10:00 02/11/17 22:17 Keppra Injection - IVPB 500 mg BID ALFONSO Administration Polyethylene Glycol 17 gm 02/04/17 10:00 02/11/17 22:17 Miralax (For Daily Use) - PO Not Given BID ALFONSO On Exam today, arousable to painful stimuli. Neck-no JVD Lungs -B/L rhonchi, rales. Heart S1S2 regular Abdomen soft, nt Ext-no CCE Current Active Problems Problem Status Diagnosed ARF (acute renal failure) Acute Dysphagia causing pulmonary aspiration with swallowing GB stone Acute Hydronephrosis. UTI Kidney stones Acute Sepsis Nalnutrition. Recurrent aspiration PNA DM 2 S/P CVA Dementia Sz disorder S/P IVC stent. Severe Anemia of chronic disease Acute GT for nutrition discussed-family reluctant. Percutaneous nephrostomy discussed. Family is considering Hospice care. Will continue ABX and fluids at this point. Comfort care with Abx. Problem List - Problems (1) Pneumonia Code(s): J18.9 - PNEUMONIA, UNSPECIFIED ORGANISM Qualifiers: Pneumonia type: due to unspecified organism Laterality: right Lung location: upper lobe of lung Qualified Code(s): J18.1 - Lobar pneumonia, unspecified organism (2) Seizure disorder Code(s): G40.909 - EPILEPSY, UNSP, NOT INTRACTABLE, WITHOUT STATUS EPILEPTICUS (3) UTI (lower urinary tract infection) Code(s): N39.0 - URINARY TRACT INFECTION, SITE NOT SPECIFIED (4) ARF (acute renal failure) Code(s): N17.9 - ACUTE KIDNEY FAILURE, UNSPECIFIED Qualifiers: Acute renal failure type: unspecified Qualified Code(s): N17.9 - Acute kidney failure, unspecified (5) Dysphagia causing pulmonary aspiration with swallowing Code(s): R13.19 - OTHER DYSPHAGIA
--- NOTE | 2017-02-12 08:39 | DS ---
Physical Examination Vital Signs: Vital Signs Temperature 98.6 F 02/12/17 06:00 Pulse Rate 94 H 02/12/17 06:00 Respiratory Rate 18 02/12/17 06:00 Blood Pressure 141/72 02/12/17 06:00 O2 Sat by Pulse Oximetry (%) 100 02/11/17 21:00 Constitutional: Yes: Pallor, Thin Eyes: Yes: Conjunctiva Clear HENT: Yes: Atraumatic, Normocephalic Neck: Yes: Supple, Trachea Midline Cardiovascular: Yes: Regular Rate and Rhythm. No: JVD Respiratory: Yes: Cough, On Nasal O2, Rales, Rhonchi, SOB Gastrointestinal: Yes: Soft. No: Abdomen, Obese, Ascites, Palpable Mass, Tenderness ...Rectal Exam: Yes: Deferred Renal/: No: Anuria Extremities: No: Calf Tenderness, Cold, Cyanosis Edema: No Peripheral Pulses WNL: No Integumentary: Yes: WNL Neurological: Yes: Aphasia. No: Alert, Oriented Psychiatric: No: Alert, Oriented, Agitated, Suicidal Ideation Labs: CBC, BMP 02/11/17 06:30 02/12/17 06:15 Discharge Summary Reason For Visit: SEPSIS, PNA, Hydronephrosis, UTI Current Active Problems ARF (acute renal failure) (Acute) Dysphagia causing pulmonary aspiration with swallowing (Acute) Hydronephrosis (Acute) Sepsis (Acute) Condition: Poor - Instructions Referrals: Carlos Knowles MD [Primary Care Provider] - - Home Medications Comprehensive Discharge Medication List: Ambulatory Orders Citalopram Hydrobromide [Citalopram HBr] 10 mg PO HS 12/31/14 Levetiracetam 5 ml PO BID 12/31/14 Multivitamins [Multivit ([facility] Formulary)] 1 tab PO DAILY 12/31/14 Petrolatum,White [Hydrophor] 100 gm TP DAILY 12/31/14 Polyethylene Glycol [Polyox Wsr-301] 1 gm MC BID 12/31/14 Ranitidine HCl [Zantac] 150 mg PO HS 12/31/14 Fluticasone Propionate [Flovent Diskus] 50 mcg IH DAILY 02/03/17
[2017-02-12] MEDS: POTASSIUM CHLORIDE IV SCH ×2 (09:38→17:39)
[2017-02-12] MEDS: DEXTROSE IV SCH ×2 (09:38→17:39)
[2017-02-12] MEDS: [UNRECOGNIZED DRUG - OTHER] IV SCH ×2 (09:38→17:39)
[2017-02-12] MEDS: BISACODYL 10 MG SUPP.RECT RC SCH (09:39)
[2017-02-12] MEDS: POLYETHYLENE GLYCOL 3350 119 GM BTL PO SCH ×2 (09:39→22:08)
[2017-02-12] MEDS: AZTREONAM 1 GM in DEXTROSE 5%-WATER - 50 ML IVPB SCH ×2 (09:39→22:07)
[2017-02-12] MEDS: levETIRAcetam 500 MG/5 ML INJECTION VIAL IVPB SCH ×2 (09:39→22:07)
--- NOTE | 2017-02-12 13:22 | PN ---
Progress Note, Physician History of Present Illness: Pt seen and examined at bedside. She remains lethargic. - Current Medication List Current Medications: Active Medications Acetaminophen (Tylenol Suppository -) 650 mg RI Q6H PRN PRN Reason: TEMP = OR >101 Bisacodyl (Dulcolax Suppository -) 10 mg RC DAILY [facility] Last Admin: 02/12/17 09:39 Dose: 10 mg Aztreonam 1 gm/ Dextrose 50 mls @ 100 mls/hr IVPB BID ALFONSO PRN Reason: Protocol Last Admin: 02/12/17 09:39 Dose: 100 mls/hr Metronidazole (Flagyl 500mg Premixed Ivpb -) 100 mls @ 100 mls/hr IVPB Q8H-IV [facility] Last Admin: 02/12/17 09:39 Dose: 100 mls/hr Potassium Chloride 10 meq/Sodium Bicarbonate 50 meq/Dextrose/Sodium Chloride 1, 055 mls @ 75 mls/hr IV Q14H [facility] Last Admin: 02/12/17 09:38 Dose: Not Given Levetiracetam (Keppra Injection -) 500 mg IVPB BID [facility] Last Admin: 02/12/17 09:39 Dose: 500 mg Polyethylene Glycol (Miralax (For Daily Use) -) 17 gm PO BID [facility] Last Admin: 02/12/17 09:39 Dose: Not Given - Objective Vital Signs: Vital Signs Temperature 98.6 F 02/12/17 06:00 Pulse Rate 94 H 02/12/17 06:00 Respiratory Rate 18 02/12/17 06:00 Blood Pressure 141/72 02/12/17 06:00 O2 Sat by Pulse Oximetry (%) 100 02/11/17 21:00 Constitutional: Yes: Calm Eyes: Yes: Conjunctiva Clear HENT: Yes: Atraumatic Cardiovascular: Yes: S1, S2 Respiratory: Yes: On Nasal O2 Gastrointestinal: Yes: Normal Bowel Sounds, Soft Genitourinary: Yes: Incontinence Musculoskeletal: Yes: Muscle Weakness Edema: No Neurological: Yes: Lethargy Labs: CBC, BMP 02/11/17 06:30 02/12/17 06:15 INR, PTT INR 1.07 (0.82-1.09) 02/03/17 20:35 Problem List - Problems (1) ARF (acute renal failure) Code(s): N17.9 - ACUTE KIDNEY FAILURE, UNSPECIFIED Qualifiers: Acute renal failure type: unspecified Qualified Code(s): N17.9 - Acute kidney failure, unspecified (2) Sepsis Code(s): A41.9 - SEPSIS, UNSPECIFIED ORGANISM Qualifiers: Sepsis type: sepsis due to unspecified organism Qualified Code(s): A41.9 - Sepsis, unspecified organism (3) Anemia Code(s): D64.9 - ANEMIA, UNSPECIFIED Qualifiers: Anemia type: unspecified anemia type Qualified Code(s): D64.9 - Anemia , unspecified (4) Pneumonia Code(s): J18.9 - PNEUMONIA, UNSPECIFIED ORGANISM Qualifiers: Pneumonia type: due to unspecified organism Laterality: right Lung location: upper lobe of lung Qualified Code(s): J18.1 - Lobar pneumonia, unspecified organism (5) Seizure disorder Code(s): G40.909 - EPILEPSY, UNSP, NOT INTRACTABLE, WITHOUT STATUS EPILEPTICUS (6) UTI (lower urinary tract infection) Code(s): N39.0 - URINARY TRACT INFECTION, SITE NOT SPECIFIED Assessment/Plan Current Medications Generic Name Dose Route Start Last Admin Trade Name Freq PRN Reason Stop Dose Admin Acetaminophen 650 mg 02/09/17 11:37 Tylenol Suppository - RI Q6H PRN TEMP = OR >101 Bisacodyl 10 mg 02/05/17 10:00 02/12/17 09:39 Dulcolax Suppository - RC 10 mg DAILY [facility] Administration Aztreonam 1 gm/ Dextrose 50 mls @ 100 mls/hr 02/04/17 22:00 02/12/17 09:39 IVPB 100 mls/hr BID ALFONSO Administration Protocol Metronidazole 100 mls @ 100 mls/hr 02/09/17 18:00 02/12/17 09:39 Flagyl 500mg Premixed Ivpb - IVPB 100 mls/hr Q8H-IV ALFONSO Administration Potassium Chloride 10 meq/ 1,055 mls @ 75 mls/hr 02/11/17 16:45 02/12/17 09:38 Sodium Bicarbonate 50 meq/ IV Not Given Dextrose/Sodium Chloride Q14H ALFONSO Levetiracetam 500 mg 02/04/17 10:00 02/12/17 09:39 Keppra Injection - IVPB 500 mg BID ALFONSO Administration Polyethylene Glycol 17 gm 02/04/17 10:00 02/12/17 09:39 Miralax (For Daily Use) - PO Not Given BID ALFONSO Impression 1. GAYATHRI - likely from ATN 2. sepsis 3. UTI 4. nephrolithiasis 5. epilepsy 6. dementia 7. proteinuria 8. right side urinary obstruction Plan - cont with fluids - renal function stabilizing - family to decide about GOC - urology input appreciated - will follow Dr Chamorro
--- NOTE | 2017-02-12 22:19 | PN ---
Progress Note, Physician History of Present Illness: Lethargic but arousable Confused Temps down Breathing non-labored WBC elevated Repeat BC no growth Renal functio improved - Current Medication List Current Medications: Active Medications Acetaminophen (Tylenol Suppository -) 650 mg MS Q6H PRN PRN Reason: TEMP = OR >101 Bisacodyl (Dulcolax Suppository -) 10 mg RC DAILY [facility] Last Admin: 02/12/17 09:39 Dose: 10 mg Aztreonam 1 gm/ Dextrose 50 mls @ 100 mls/hr IVPB BID [facility] PRN Reason: Protocol Last Admin: 02/12/17 22:07 Dose: 100 mls/hr Potassium Chloride 10 meq/Sodium Bicarbonate 50 meq/Dextrose/Sodium Chloride 1, 055 mls @ 75 mls/hr IV Q14H [facility] Last Admin: 02/12/17 17:39 Dose: 75 mls/hr Levetiracetam (Keppra Injection -) 500 mg IVPB BID [facility] Last Admin: 02/12/17 22:07 Dose: 500 mg Polyethylene Glycol (Miralax (For Daily Use) -) 17 gm PO BID [facility] Last Admin: 02/12/17 22:08 Dose: Not Given - Objective Vital Signs: Vital Signs Temperature 98.5 F 02/12/17 15:40 Pulse Rate 94 H 02/12/17 15:40 Respiratory Rate 18 02/12/17 15:40 Blood Pressure 120/76 02/12/17 15:00 O2 Sat by Pulse Oximetry (%) 95 02/12/17 09:00 Constitutional: Yes: No Distress Eyes: Yes: Conjunctiva Clear Cardiovascular: Yes: Regular Rate and Rhythm, S1, S2 Respiratory: Yes: Diminished Gastrointestinal: Yes: Normal Bowel Sounds, Soft Edema: No Labs: CBC, BMP 02/11/17 06:30 02/12/17 06:15 INR, PTT INR 1.07 (0.82-1.09) 02/03/17 20:35 Assessment/Plan Gram Neagtive bacteremia/ sepsis- E coli UTI/ sepsis secondary to UTI - Proteus Possible RUL infiltrate Leukocytosis Azotemia-improved Antibiotic allergies continue aztreonam- coverage of urosepsis/ pneumonia Supportive care
[2017-02-13] MEDS: [UNRECOGNIZED DRUG - OTHER] IV SCH (04:17)
[2017-02-13] MEDS: DEXTROSE IV SCH (04:17)
[2017-02-13] MEDS: POTASSIUM CHLORIDE IV SCH (04:17)
--- NOTE | 2017-02-13 08:32 | PN ---
Progress Note (short form) - Note Progress Note: Afebrile, NAD Last Vital Signs Temp Pulse Resp BP Pulse Ox 98.1 F 101 H 20 124/53 95 02/13/17 06:00 02/13/17 06:00 02/13/17 06:00 02/13/17 06:00 02/12/17 21:00 Laboratory Results - last 24 hr 02/08/17 02/12/17 02/12/17 13:00 06:15 17:00 Sodium 144 Potassium 4.0 Chloride 114 H Carbon Dioxide 19 L D Anion Gap 11 BUN 60 H Creatinine 3.3 H POC Glucometer 110 Random Glucose 105 Calcium 7.5 L Blood Type A POSITIVE Antibody Screen Negative Crossmatch See Detail 02/13/17 05:49 Sodium Potassium Chloride Carbon Dioxide Anion Gap BUN Creatinine POC Glucometer 107 Random Glucose Calcium Blood Type Antibody Screen Crossmatch Spoke again today to daughter and yesterday with Ms Ledesma. The family agreed with transferring to [facility] and palliative/hospice care On Exam Awake, confuse, NAD Lungs B/L rhonchi Heart S1 S2 regular Abdomen soft. NT No back pain No CCE Current Active Problems Problem DEMENTIA Status Diagnosed ARF (acute renal failure) Acute Dysphagia causing pulmonary aspiration with swallowing Acute Hydronephrosis Acute Sepsis pNEUMONIA rul/ Acute Plan Transfer to [facility]. Hospice care Will foolow with [facility] coordinator Problem List - Problems (1) Pneumonia Code(s): J18.9 - PNEUMONIA, UNSPECIFIED ORGANISM Qualifiers: Pneumonia type: due to unspecified organism Laterality: right Lung location: upper lobe of lung Qualified Code(s): J18.1 - Lobar pneumonia, unspecified organism (2) Seizure disorder Code(s): G40.909 - EPILEPSY, UNSP, NOT INTRACTABLE, WITHOUT STATUS EPILEPTICUS (3) UTI (lower urinary tract infection) Code(s): N39.0 - URINARY TRACT INFECTION, SITE NOT SPECIFIED (4) ARF (acute renal failure) Code(s): N17.9 - ACUTE KIDNEY FAILURE, UNSPECIFIED Qualifiers: Acute renal failure type: unspecified Qualified Code(s): N17.9 - Acute kidney failure, unspecified (5) Dysphagia causing pulmonary aspiration with swallowing Code(s): R13.19 - OTHER DYSPHAGIA
[2017-02-13] MEDS ORDERED: PT OWN MED DRAWER 7, Y5N ONE (08:50)
[2017-02-13 09:14] LABS: CALCIUM 7.7 mg/dL (8.5-10.1); COCKROFT - GAULT 11.186; CREATININE 3.1 mg/dL (0.55-1.02)
[2017-02-13] MEDS: levETIRAcetam 500 MG/5 ML INJECTION VIAL IVPB SCH (09:15)
[2017-02-13] MEDS: BISACODYL 10 MG SUPP.RECT RC SCH (09:15)
[2017-02-13] MEDS: AZTREONAM 1 GM in DEXTROSE 5%-WATER - 50 ML IVPB SCH (09:15)
[2017-02-13] MEDS: POLYETHYLENE GLYCOL 3350 119 GM BTL PO SCH (09:16)
[2017-02-13 10:22] VITALS: BP 129/62; PULSE 96; TEMP 98.8
== END 2017-02-13 11:36 | DRG 871 ==
LOC: JER 20:34 → JERBED 21:56 → UNDOADMIN 22:48 → J5S 02-04 03:05
PROVIDERS: ADMIT Internal Medicine; ATTEND Internal Medicine
PROC: 30233N1 Transfusion of Nonautologous Red Blood Cells into Peripheral Vein, Percutaneous Approach (ICD-10-PCS; principal; 2017-02-09)
DX: A41.9 Sepsis, unspecified organism (principal); N17.0 Acute kidney failure with tubular necrosis; J18.1 Lobar pneumonia, unspecified organism; G93.41 Metabolic encephalopathy; N39.0 Urinary tract infection, site not specified; N13.2 Hydronephrosis with renal and ureteral calculous obstruction; B96.4 Proteus (mirabilis) (morganii) as the cause of diseases classified elsewhere; G40.909 Epilepsy, unspecified, not intractable, without status epilepticus; I10 Essential (primary) hypertension; E78.00 Pure hypercholesterolemia, unspecified; E03.9 Hypothyroidism, unspecified; Z85.118 Personal history of other malignant neoplasm of bronchus and lung; D64.9 Anemia, unspecified; F03.90 Unspecified dementia, unspecified severity, without behavioral disturbance, psychotic disturbance, mood disturbance, and anxiety; I25.10 Atherosclerotic heart disease of native coronary artery without angina pectoris; Z95.1 Presence of aortocoronary bypass graft; E11.9 Type 2 diabetes mellitus without complications; Z87.01 Personal history of pneumonia (recurrent); M19.90 Unspecified osteoarthritis, unspecified site; M85.80 Other specified disorders of bone density and structure, unspecified site; K59.00 Constipation, unspecified; Z66 Do not resuscitate; R13.10 Dysphagia, unspecified; M62.81 Muscle weakness (generalized); E87.6 Hypokalemia; R32 Unspecified urinary incontinence
CPT/HCPCS: 36415; 36430; 70450-TC; 71010-TC; 74176-TC; 74230-TC; 76705-TC; 76775-TC; 80048; 80053; 81003; 81015; 82272; 82436; 82550; 82570; 82803; 82977; 83036; 83605; 83735; 84133; 84300; 84439; 84443; 84484; 85025; 85027; 85610; 85730; 86850; 86900; 86901; 86922; 87040; 87086; 87186; 87324; 87449; 92611-GN; 93005; 93010; 93971-TC; 99284-25; J1644; P9038; P9058